=== PATIENT | female | born 1975 | race African-American/Black ===

== ENCOUNTER 2017-06-30 17:42 | Emergency (ER) | payer SELFPAY ==
[2017-06-30 17:44] VITALS: BP 183/110; PULSE 102; RESP 18; TEMP 36.6; O2SAT 99; BMI 34.3
[2017-06-30] MEDS: Ipratropium/Albuterol Sulfate 3 ML AMPUL.NEB INHALATION (19:09)
[2017-06-30 19:10] VITALS: PULSE 78; RESP 18
[2017-06-30] MEDS: Albuterol 2.5 MG/3 ML VIAL.NEB. INHALATION (19:10)
--- NOTE | 2017-06-30 19:30 | RAD_ITS ---
STUDY: X-RAY CHEST REASON FOR EXAM: Female, 41 years old. Cough TECHNIQUE: Frontal and lateral views of the chest were obtained. COMPARISON: None. FINDINGS: The lungs are adequately aerated. There are no focal airspace opacities. There is no demonstrated pleural abnormality. The cardiac silhouette is normal in size. The mediastinum and hilar regions are unremarkable. Normal visualized pulmonary arteries. Normal visualized aortic arch and descending thoracic aorta. The thoracic spine is unremarkable. The visualized ribs, clavicles, and shoulders are unremarkable. There is no demonstrated abnormality of the visualized upper abdomen. RAD/Chest PA and Lateral IMPRESSION: There is no evidence of focal consolidation or pleural effusion. Electronically Signed: Amy Byrnes MD at 19:49 EST Tel Direct: [phone], Service support ,
[2017-06-30 20:02] VITALS: BP 149/97; PULSE 84; RESP 18; O2SAT 100
--- NOTE | 2017-06-30 21:39 | ED.DCSUM_ITS ---
- ER Visit Summary Date of Service: 06/30/17 Chief Complaint: Trouble breathing and nonproductive cough History of Present Illness: The patient is a 41 F who is a non-smoker presents with nonproductive cough and trouble breathing. Symptoms started approximately 1 week ago and has gotten worse over the past 24 hours. Her children are ill with viral upper respiratory type symptoms. There illness began last week. She denies fever, chills night sweats. She denies headache, runny nose, earache or sore throat. She states when she coughs hard she has chest discomfort. She has no history of PE DVT. She has no complaint of leg pain, swelling discoloration. She has no risk factors for PE or DVT nor does she have a past history. Physical Examination: Initial blood pressure was 183/110. Repeat blood pressure is 149/90. Head is atraumatic normocephalic. Pupils are equal round reactive. Extraocular muscles are intact. TMs are pearly white with landmarks noted. Nares patent with no drainage. Posterior pharynx without erythema or exudate. Uvula is midline. There is no dysphonia or dysphasia. Trachea is midline. There is no stridor with auscultation of the neck. Heart is regular without murmur, gallop or rub. S1 and S2 are normal. Lungs are remarkable for bilateral wheezing to auscultation with good movement of air bilaterally. There is no asymmetry, swelling, discoloration, leg vein distention, palpable cords or tenderness along the distribution of the deep venous system. Neuro exam is nonfocal Test Results: Two-view chest x-ray was obtained and interpreted by me as negative Emergency Department Course and Treatment: Because patient has a cough non- smoker wheezing chest x-ray was obtained and she was treated with DuoNeb and albuterol. Treatment Plan: Reevaluation at 2130 is remarkable for improved blood pressure and patient is now wheeze free. She no longer appears dyspneic. A prescription for albuterol was written and dispensed. Disposition: Discharged home in stable improved condition Impression: Acute asthmatic bronchitis This note was generated with [employer]ation software. It may contain incorrect words, spelling, and punctuation that were not noted in review of the chart prior to signing ED Disposition - Plan for ED Patient: Disposition: Home or Assisted Living Chief Complaint: Shortness of Breath Instructions: ED Bronchitis Asthmatic Referrals: Care Physician,No Primary [Primary Care Provider] -
--- NOTE | 2017-06-30 21:40 | ED.VISSUMM ---
- ER Visit Summary Date of Service: 06/30/17 Chief Complaint: [] History of Present Illness: The patient is a 41 F [] Physical Examination: [] Test Results: [] Emergency Department Course and Treatment: [] Treatment Plan: [] Disposition: [] Impression: [] This note was generated with [employer] dictation software. It may contain incorrect words, spelling, and punctuation that were not noted in review of the chart prior to signing ED Disposition - Plan for ED Patient: Disposition: Home or Assisted Living Chief Complaint: Shortness of Breath Instructions: ED Bronchitis Asthmatic Prescriptions: Albuterol Inhaler [Ventolin Hfa] 2 puff INHALATION Q4H PRN PRN #1 inhaler PRN Reason: Shortness of breath or wheezin Referrals: Care Physician,No Primary [Primary Care Provider] - 5-7 Days Additional Instructions: Follow-up with the doctor you were assigned to by your insurance carrier [employer] advantage.
[2017-06-30 22:00] VITALS: PULSE 89; RESP 16; O2SAT 95
[2017-06-30 22:31] VITALS: PULSE 82; RESP 16; O2SAT 100
--- NOTE | 2017-06-30 22:36 | NURSING ---
CALLED RESPIRATORY TO DO EDUCATION WITH HOME GOING INHALER
[2017-06-30 22:45] VITALS: RESP 18
== END 2017-06-30 22:45 | disposition home or self-care (01) ==
PROVIDERS: Emergency Provider Emergency Medicine
DX: J45.909 Unspecified asthma, uncomplicated (principal)
CPT/HCPCS: 71046; 94640; 99283

== ENCOUNTER 2018-04-21 22:19 | Emergency (ER) | payer BC, SELFPAY ==
[2018-04-21 22:21] VITALS: BP 157/96; PULSE 113; RESP 26; TEMP 36.6; O2SAT 96; BMI 37.0
--- NOTE | 2018-04-21 22:35 | ED.DCSUM_ITS ---
- ER Visit Summary Date of Service: 04/21/18 Chief Complaint: [] Shortness of breath with wheezing History of Present Illness: The patient is a 42 F planing of shortness of breath with wheezing. This is been going on for the last couple days. No home treatment. She has a nebulizer but is out of liquid. She does not have a formal diagnosis of asthma but for the last year she is been having frequent exacerbations. She has a mild dry cough. This came on gradually. Her symptoms tonight are continuous. She has wheezing. Current severity is moderate. Worsened by nothing. Relieved by albuterol inhaler for which she is been using intermittently. She denies any chest pain. Her last steroids were 2 weeks ago. She denies any recent hospitalizations. She is never been on an inhaled steroid Physical Examination: [] Vital signs reviewed General: Well-nourished well-developed Head: Normocephalic atraumatic Eyes: Pupils equal round and reactive to light extraocular movements intact ENT: TMs clear no hemotympanum no trauma Neck: Nontender full range of motion Cardiovascular: Regular rate rhythm no murmurs normal S1-S2 Respiratory: No distress Tory wheezes throughout all lung [place]. Chest nontender Abdomen: Soft nontender nondistended normal bowel sounds no masses Back: Nontender no CVA tenderness Extremities: Nontender active range of motion ?4 extremities no trauma Skin: Normal color no trauma Neuro alert oriented cranial nerves II through XII intact normal strength sensation reflexes Test Results: [] Emergency Department Course and Treatment: [] At this time I feel the patient has asthma. She has had frequent exacerbations throughout the year. I do not think she needs a chest x-ray. Given prednisone and DuoNeb nebulizer followed by 2 albuterol breathing treatments. [place] much better after treatment. She will be discharged with albuterol liquid and will continue her inhaler as well as a prednisone burst for 5 days. She will also be given a prescription for Advair if she has an uncontrolled asthmatic. Instructed to follow-up with the family doctor and given a referral Treatment Plan: [] Disposition: [] Impression: [] Acute asthma exacerbation This note was generated with [employer] software. It may contain incorrect words, spelling, and punctuation that were not noted in review of the chart prior to signing ED Disposition - Plan for ED Patient: Chief Complaint: Shortness of Breath Referrals: Care Physician,Shalini Primary [Primary Care Provider] -
[2018-04-21 22:38] VITALS: BP 157/96; PULSE 111; PULSE 113; RESP 24; RESP 26; TEMP 36.6; O2SAT 96; O2SAT 98
--- NOTE | 2018-04-21 22:45 | ED.DEP ---
ED Disposition - Plan for ED Patient: Disposition: Home or Assisted Living Chief Complaint: Shortness of Breath Instructions: ED Reactive Airway Disease Prescriptions: Albuterol Aerosols [Ventolin Aerosols] 2.5 mg INHALATION Q4H PRN #25 vial predniSONE tablet 60 mg PO DAILY #15 tab Referrals: Care Physician,No Primary [Primary Care Provider] - Jean Mckay MD [STAFF PHYSICIAN] -
[2018-04-21 22:47] VITALS: PULSE 104; RESP 18
[2018-04-21] MEDS: Ipratropium/Albuterol Sulfate 3 ML AMPUL.NEB INHALATION (22:47)
[2018-04-21] MEDS: Albuterol 2.5 MG/3 ML VIAL.NEB. INHALATION ×2 (22:47→23:00)
[2018-04-21 23:00] VITALS: PULSE 114; RESP 24
[2018-04-21] MEDS: predniSONE 20 MG Tablet 60 MG PO (23:17)
[2018-04-21 23:20] VITALS: BP 150/100; PULSE 96; RESP 18; O2SAT 96
== END 2018-04-21 23:20 | disposition home or self-care (01) ==
LOC: ED 23:02
PROVIDERS: Emergency Provider Emergency Medicine
DX: J45.901 Unspecified asthma with (acute) exacerbation (principal)
CPT/HCPCS: 94640; 99284

== ENCOUNTER 2018-07-11 01:07 | Emergency (ER) | payer BC, SELFPAY ==
[2018-07-11 01:08] VITALS: BP 141/90; PULSE 109; RESP 18; TEMP 36.6; O2SAT 100; BMI 36.6
--- NOTE | 2018-07-11 01:19 | RAD_ITS ---
STUDY: X-RAY CHEST REASON FOR EXAM: Female, 42 years old. Cough. TECHNIQUE: PA and lateral chest. COMPARISON: June 30, 2017. FINDINGS: The lungs are clear and expanded. There is no demonstrated pleural abnormality. Normal size heart. Normal mediastinum and francisco. Normal visualized pulmonary arteries. Normal visualized aortic arch and descending thoracic aorta. Normal visualized thoracic spine. Normal visualized ribs, clavicles, and shoulders. There is no demonstrated abnormality of the visualized soft tissue structures of the upper abdomen. RAD/Chest PA and Lateral IMPRESSION: Normal x-ray examination of the chest. Electronically Signed: Raffaele Stephen MD at 2:30 EDT , Service support ,
--- NOTE | 2018-07-11 01:21 | ED.VISSUMM ---
- ER Visit Summary Date of Service: 07/11/18 Chief Complaint: Short of breath and chest tightness History of Present Illness: The patient is a 42 F who presents with cough and shortness of breath. She has had about 1 week of a URI-like illness with congestion rhinorrhea although the symptoms are improving. She was seen at an urgent care and prescribed a Medrol Dosepak as well as Levaquin. She states today she is having increased shortness of breath and chest tightness. No chest pain. No fevers. No vomiting. Physical Examination: Heart rate 109 blood pressure 141/90 afebrile pulse ox 100% respiratory rate 18 No distress Moist mucous membranes Heart regular slightly tachycardic Patient has scattered expiratory wheezing but is in no distress no increased work of breathing or tachypnea speaking in full sentences Alert Test Results: Two-view chest x-ray my review shows no acute process Emergency Department Course and Treatment: Patient was treated with a DuoNeb aerosol here. On reevaluation she is resting comfortably. Her lungs are clear. She was advised on supportive care and to continue her current medications. She was given a prescription for new albuterol inhaler. She was advised to follow-up as an outpatient. She understands to return for new or worsening symptoms and was discharged home. Treatment Plan: [] Disposition: Discharge Impression: Asthmatic bronchitis This note was generated with [employer] dictation software. It may contain incorrect words, spelling, and punctuation that were not noted in review of the chart prior to signing ED Disposition - Plan for ED Patient: Referrals: Care Physician,No Primary [NON-STAFF] -
[2018-07-11 01:25] VITALS: PULSE 90; RESP 18
[2018-07-11] MEDS: Ipratropium/Albuterol Sulfate 3 ML AMPUL.NEB INHALATION (01:30)
[2018-07-11 01:58] VITALS: BP 129/90; PULSE 96; RESP 20; O2SAT 99
--- NOTE | 2018-07-11 01:59 | ED.DEP ---
ED Disposition - Plan for ED Patient: Instructions: ED Bronchitis Asthmatic Prescriptions: Albuterol Inhaler [Ventolin Hfa] 1 - 2 puff INHALATION Q4H PRN PRN #1 inhaler PRN Reason: Wheezing Referrals: Care Physician,No Primary [NON-STAFF] - Jean Mckay MD [Primary Care Provider] -
== END 2018-07-11 01:59 | disposition home or self-care (01) ==
LOC: ED 01:27
PROVIDERS: Emergency Provider Emergency Medicine; Family Provider Family Medicine; PCP Family Medicine
DX: J45.909 Unspecified asthma, uncomplicated (principal)
CPT/HCPCS: 71046; 94640; 99282

== ENCOUNTER 2018-08-11 20:46 | Emergency (ER) | payer BC, SELFPAY ==
[2018-08-11 20:46] VITALS: BP 155/104; PULSE 108; RESP 22; TEMP 36.7; O2SAT 100; BMI 36.1
[2018-08-11 21:05] VITALS: O2SAT 97
--- NOTE | 2018-08-11 21:19 | ED.VISSUMM ---
- ER Visit Summary Date of Service: 08/11/18 Chief Complaint: Shortness of breath History of Present Illness: The patient is a 42 F who presents with shortness of breath that has been getting worse over the past couple days. Patient states she has some tightness in her chest. Patient states she is having a cough with some yellow and clear sputum. Patient denies any fevers or chills. Patient denies any ear pain or sore throat. Patient states she has a history of asthma. Patient states she did take an albuterol aerosol at home today which helped. Patient states her breathing is worse with exertion. Physical Examination: Vital signs are stable. Patient is afebrile. Patient is in no acute distress. Oral mucosa is pink and moist. Neck is supple. Trachea is midline. There is no JVD noted. Heart was regular rate and rhythm. Lungs showed diffuse expiratory wheezing. There is good respiratory effort. There is no retractions noted. Abdomen is soft and nontender. Cranial nerves II through XII are intact. There are no focal motor or sensory deficits noted. Emergency Department Course and Treatment: Patient was given a DuoNeb aerosol here. Patient felt better on reevaluation. Patient was given a prescription for albuterol inhaler. Patient was instructed to follow-up with her primary care physician in 5-7 days. Patient also requests a referral for a criminal judge. Patient was given contact information for Dr. Durham. Patient understood and was agreeable with the plan. All questions were answered. Disposition: Discharge home Impression: Asthma exacerbation This note was generated with [employer] dictation software. It may contain incorrect words, spelling, and punctuation that were not noted in review of the chart prior to signing ED Disposition - Plan for ED Patient: Disposition: ID Hospital Diagnosis: Asthma exacerbation Instructions: ED Reactive Airway Disease Prescriptions: Albuterol Inhaler [Ventolin Hfa] 1 - 2 puff INHALATION Q4H PRN PRN #1 inhaler PRN Reason: Wheezing Referrals: Jean Mckay MD [Primary Care Provider] - 5-7 Days Teto Durham MD [STAFF PHYSICIAN] -
[2018-08-11 21:27] VITALS: PULSE 94; RESP 20
[2018-08-11] MEDS: Ipratropium/Albuterol Sulfate 3 ML AMPUL.NEB INHALATION (21:27)
--- NOTE | 2018-08-11 22:11 | ED.DCSUM_ITS ---
- ER Visit Summary Date of Service: 08/11/18 Chief Complaint: Shortness of breath History of Present Illness: The patient is a 42 F who presents with shortness of breath that has been getting worse over the past couple days. Patient states she has some tightness in her chest. Patient states she is having a cough with some yellow and clear sputum. Patient denies any fevers or chills. Patient denies any ear pain or sore throat. Patient states she has a history of asthma. Patient states she did take an albuterol aerosol at home today which helped. Patient states her breathing is worse with exertion. Physical Examination: Vital signs are stable. Patient is afebrile. Patient is in no acute distress. Oral mucosa is pink and moist. Neck is supple. Trachea is midline. There is no JVD noted. Heart was regular rate and rhythm. Lungs showed diffuse expiratory wheezing. There is good respiratory effort. There is no retractions noted. Abdomen is soft and nontender. Cranial nerves II through XII are intact. There are no focal motor or sensory deficits noted. Emergency Department Course and Treatment: Patient was given a DuoNeb aerosol here. Patient felt better on reevaluation. Patient was given a prescription for albuterol inhaler. Patient was instructed to follow-up with her primary care physician in 5-7 days. Patient also requests a referral for a community development coordinator. Patient was given contact information for Dr. Durham. Patient understood and was agreeable with the plan. All questions were answered. Disposition: Discharge home Impression: Asthma exacerbation This note was generated with [employer] dictation software. It may contain incorrect words, spelling, and punctuation that were not noted in review of the chart prior to signing ED Disposition - Plan for ED Patient: Disposition: [place] Hospital Diagnosis: Asthma exacerbation Instructions: ED Reactive Airway Disease Prescriptions: Albuterol Inhaler [Ventolin Hfa] 1 - 2 puff INHALATION Q4H PRN PRN #1 inhaler PRN Reason: Wheezing Referrals: Jean Mckay MD [Primary Care Provider] - 5-7 Days Teto Durham MD [STAFF PHYSICIAN] -
[2018-08-11 22:25] VITALS: BP 140/86; PULSE 90; RESP 20; O2SAT 95
== END 2018-08-11 22:25 | disposition home or self-care (01) ==
PROVIDERS: Emergency Provider Emergency Medicine; Family Provider Family Medicine; PCP Family Medicine
DX: J45.901 Unspecified asthma with (acute) exacerbation (principal)
CPT/HCPCS: 94640; 99282

== ENCOUNTER → 2018-10-15 09:38 | Outpatient (CLI) | payer BC, SELFPAY ==
[2018-10-15 08:52] VITALS: BMI 36.3
[2018-10-15 10:18] LABS: Absolute Lymphocyte Count 2.02 X10^3/ul (0.83-4.51); Absolute Neutrophil Count 4.7 X10^3/uL (2.0-7.7); Basophil# 0.05 X10^3/uL; Basophil% 0.7 % (0-1); Eosinophil# 0.24 X10^3/uL; Eosinophils% 3.1 % (0-5); Hematocrit 41.8 % (37-47); Hemoglobin 14.5 g/dl (12.0-15.0); Lymphocyte # 2.02 X10^3/ul (4.0); Lymphocyte % 26.4 % (19-41); Mean Corp Hgb Conc 34.7 g/gl (32-36); Mean Corpuscular Hgb 27.2 pg (27.0-32.0); Mean Corpuscular Volume 78.3 fL (81-99); Mean Platelet Vol. 10.5 fl (6.2-12.0); Monocyte# 0.61 X10^3/uL; Neutrophil # 4.71 X10^3/uL (2.7-7.7); Neutrophil % 61.5 % (47-70); POSITIVE COUNT NO; POSITIVE DIFFERENTIAL NO; POSITIVE MORPHOLOGY NO; Platelet Count 252 K/mm3 (150-450); RBC Distribution Width SD 39.4 fl (35.1-43.9); Red Blood Count 5.34 M/mm3 (4.2-5.4); White Blood Count 7.7 K/mm3 (4.4-11.0)
[2018-10-19 03:07] LABS: Alternaria tenuis <0.10 kU/L (Class 0); Ash, White <0.10 kU/L (Class 0); Aspergillus fumigatus <0.10 kU/L (Class 0); Aspirgillus flavus Negative (Neg:<1:1); Aspirgillus fumigatus Negative (Neg:<1:1); Aspirgillus niger Negative (Neg:<1:1); Bermuda Grass <0.10 kU/L (Class 0); Birch <0.10 kU/L (Class 0); Black Walnut <0.10 kU/L (Class 0); Cat Hair / Dander,Stand <0.10 kU/L (Class 0); Cedar, Mountain <0.10 kU/L (Class 0); Cladosporium herbarum <0.10 kU/L (Class 0); Cockroach, American <0.10 kU/L (Class 0); Cottonwood <0.10 kU/L (Class 0); D farinae Mite <0.10 kU/L (Class 0); D pteronyssinus <0.10 kU/L (Class 0); Dog Epithelia 5.13 kU/L (Class IV); Elm, American White <0.10 kU/L (Class 0); Immunoglobulin E 105 IU/mL (6-495); Maple/Box Elder <0.10 kU/L (Class 0); Mulberry, White <0.10 kU/L (Class 0); Oak, White <0.10 kU/L (Class 0); Pecan 0.55 kU/L (Class I); Penicillium Notatum <0.10 kU/L (Class 0); Pigweed, Rough <0.10 kU/L (Class 0); Ragweed, Short/Common <0.10 kU/L (Class 0); Russian Thistle <0.10 kU/L (Class 0); Sheep Sorrel <0.10 kU/L (Class 0); Sycamore, American <0.10 kU/L (Class 0); Timothy Grass <0.10 kU/L (Class 0)
[2018-10-19 11:17] LABS: Immunoglobulin E 111 IU/mL (6-495); Mouse Urine <0.10 kU/L (Class 0)
== END ==
LOC: PAVLAB 09:40
PROVIDERS: Family Provider Family Medicine; PCP Family Medicine; Referring Provider Internal Medicine Critical Care Medicine; Visit Provider Internal Medicine Critical Care Medicine
DX: J45.909 Unspecified asthma, uncomplicated (principal)
CPT/HCPCS: 36415; 82785; 85025; 86003; 86606

== ENCOUNTER → 2018-11-01 08:13 | Outpatient (CLI) | payer BC, SELFPAY ==
[2018-10-15 08:52] VITALS: BMI 36.3
--- NOTE | 2018-11-01 14:39 | PFTCOMP ---
COMPLETE PULMONARY FUNCTION TEST INTERPRETATION Brief HPI: Patient is a 42 year old -[place] female, currently under the care of Dr. Mora, who presents to [facility] for complete pulmonary function tests secondary to diagnosis of asthma. Respiratory therapist reports good effort and reproducible results. Interpretation: Forced expiration spirometry shows no large airways obstructive ventilatory defect with an FEV1 of 91% predicted. There is no significant bronchodilator response by strict ATS criteria. Spirograms are of good quality and plateau slowly, indicating slowly emptying areas of the lungs. The respiratory flow volume loop shows a normal pattern. Lung volumes by body plethysmography show a slightly reduced total lung capacity at 4.29 L, 85% predicted. All other lung volumes are reduced symmetrically. Diffusion capacity by carbon monoxide is reduced at 68% predicted. The airway resistance is slightly elevated. No previous pulmonary function tests were available for review. Impression: Isolated reduction in diffusion capacity consistent with a possible pulmonary vascular disorder.
== END ==
LOC: PSN 08:14
PROVIDERS: Family Provider Family Medicine; PCP Family Medicine; Referring Provider Internal Medicine Critical Care Medicine; Visit Provider Internal Medicine Critical Care Medicine
DX: J45.909 Unspecified asthma, uncomplicated (principal)
CPT/HCPCS: 94060; 94726; 94729

== ENCOUNTER 2019-03-31 18:40 | Emergency (ER) | payer BC, SELFPAY ==
[2018-12-12 10:45] VITALS: BMI 36.3
[2019-03-31 18:41] VITALS: BP 163/105; PULSE 91; PULSE 97; RESP 18; RESP 22; TEMP 36.1; O2SAT 98; BMI 36.2
[2019-03-31 18:49] VITALS: O2SAT 97
--- NOTE | 2019-03-31 18:57 | ED.VIS.GEN ---
History of Present Illness Chief Complaint: Shortness of Breath Informant: Patient Onset: Today Narrative: Patient states for the past several hours she has had an asthma flare. She sees pulmonology here at the hospital for her asthma care. She states that she has not felt sick or had any viral infections. She reports her last flare of asthma was over October 25. She notes cough and dyspnea. Past Medical History - Allergies and Home Meds Allergies/Adverse Reactions: Allergies No Known Allergies Allergy (Verified 03/31/19 18:41) Primary Care Physician: Jean Mckay MD [Primary Care Provider] - As Needed Smoking Status: Never smoker Review of Systems General: Denies: Chills, Fever, Sweats Eyes: Denies: Visual changes - bilaterally, Diplopia ENT: Denies: Rhinorrhea, Sore throat Cardiovascular: Denies: Chest pain, Palpitations Respiratory: Reports: Dyspnea, Cough, Dyspnea on exertion Gastrointestinal: Denies: Abdominal pain, Nausea, Vomiting, Diarrhea, Melena, Hematochezia Genitourinary: Denies: Dysuria, Hematuria, Frequency Musculoskeletal: Denies: Back pain, Extremity Pain Skin: Denies: Rash, Wounds Neurological: Denies: Headache, Weakness, Numbness Physical Exam Vital Signs/Narrative: Vital Signs Temp Pulse Resp BP Pulse Ox 03/31/19 18:41 97.0 F L 97 22 H 163/105 H 98 General: Well nourished, Well developed, No Acute Distress Head: Normocephalic, Atraumatic Eyes: Perrl, EOMI ENT: Moist mucous membranes, No rhinorrhea Neck: Supple, Nontender Cardiovascular: Regular rate, Regular rhythm, No murmurs Respiratory: No distress, Chest nontender, Wheezing - Inspiratory and expiratory wheezing, Decreased Air Movement Abdomen: Soft, Nontender, Nondistended, Normal bowel sounds Back: Nontender, Normal Inspection Extremities: Nontender, No edema Skin: Normal color, No rash Neurological: Alert, Oriented x3, Cranial nerves II-XII grossly intact, Normal Strength, Normal Sensation Psychological: Normal affect, Normal Mood Diagnostic/Tx/Re-eval - Medical Decision Making Patient received breathing treatments and prednisone. Lung sounds are improved and symptomatically she states she feels better. She will be discharged home with a prescription for prednisone and instructions to have scheduled use of her albuterol MDI. Return if worsening or concerns ED Disposition - Plan for ED Patient: Disposition: Home or Assisted Living Diagnosis: Asthma, Asthma exacerbation Instructions: ASTHMA, Acute (Adult) Prescriptions: Prednisone [Deltasone] 40 mg PO DAILY #10 tab Prescription Printed Referrals: Jean Mckay MD [Primary Care Provider] - As Needed Additional Instructions: I would recommend using your inhaler very regularly - at least 2 puffs every 4 hours
[2019-03-31 19:12] VITALS: PULSE 84; RESP 20; RESP 22; O2SAT 98
[2019-03-31] MEDS: Ipratropium/Albuterol Sulfate 3 ML AMPUL.NEB INHALATION (19:12)
[2019-03-31] MEDS: Albuterol 2.5 MG/3 ML VIAL.NEB. INHALATION ×3 (19:12→19:35)
[2019-03-31] MEDS: predniSONE 20 MG Tablet 40 MG PO (19:36)
[2019-03-31 19:59] VITALS: RESP 18
--- NOTE | 2019-03-31 20:04 | CPS ---
x3 Albuterol given to pt. in ED as well
== END 2019-03-31 20:01 | disposition home or self-care (01) ==
LOC: ED 19:04
PROVIDERS: Emergency Provider Emergency Medicine; Family Provider Family Medicine; PCP Family Medicine
DX: J45.901 Unspecified asthma with (acute) exacerbation (principal)
CPT/HCPCS: 94640; 99251; 99282; G0463

== ENCOUNTER → 2019-05-20 17:30 | Outpatient (CLI) | payer BC, SELFPAY ==
[2019-05-23 11:09] LABS: HPV Reflexed? NOT INDICATED
== END ==
PROVIDERS: PCP Family Medicine; Referring Provider Nurse Practitioner Family; Visit Provider Nurse Practitioner Family
DX: Z00.00 Encounter for general adult medical examination without abnormal findings (principal)
CPT/HCPCS: 88175; G0145

== ENCOUNTER → 2019-05-21 08:12 | Outpatient (CLI) | payer BC, SELFPAY ==
[2019-05-21 10:39] LABS: ALB/GLOB Ratio 0.8 RATIO (0.9-2.4); AST(SGOT) 18 U/L (15-37); Alanine Aminotransfer ALT/SGPT 43 U/L (13-56); Albumin, Serum 3.2 g/dL (3.2-5.0); Alkaline Phosphatase 81 U/L (45-117); Anion Gap 6 (5-15); BUN 10 mg/dL (7-18); BUN/Creat Ratio 10.9 RATIO (10-20); Calcium,Total 8.9 mg/dL (8.5-10.1); Chloride 109 mmol/L (98-107); Cholesterol 187 mg/dL (200); Creatinine, Serum 0.92 mg/dL (0.55-1.02); EST Glomerular Filtration Rate 71 mL/min (>60); Est Glom Filt Rate - Afr Amer 86 mL/min (>60); Globulin 4.1 g/dL (2.2-4.2); Glucose 86 mg/dL (74-106); High Density Lipoprotein 56 mg/dL; Potassium 3.8 mmol/L (3.5-5.1); Protein, Total 7.3 g/dL (6.4-8.2); Sodium Level 140 mmol/L (136-145); Triglycerides 115 mg/dL; Very Low Density Lipoprotein 23 mg/dL (5-40)
== END ==
LOC: MFPLAB 08:13
PROVIDERS: PCP Family Medicine; Referring Provider Family Medicine; Visit Provider Nurse Practitioner Family
DX: E66.9 Obesity, unspecified (principal)
CPT/HCPCS: 36415; 80053; 80061

== ENCOUNTER → 2019-05-24 08:01 | Outpatient (CLI) | payer BC, SELFPAY ==
--- NOTE | 2019-05-24 08:14 | BI_ITS ---
MAMMOGRAPHY - BILATERAL SCREENING REASON FOR EXAM: Female, 43 years old. Routine annual screening examination. PERTINENT HISTORY: Aunts with breast cancer. TECHNIQUE: Digital bilateral breast juanita (3D mammographic acquisition) in the CC and MLO projections. 2-D mediolateral oblique (MLO) and craniocaudad (CC) views of both breasts were obtained. CAD: Full Field Digital Mammography with Computer Added Detection was performed. COMPARISON: Comparison is made with prior outside examination dated June 16, 2015. FINDINGS: Breast Composition: There are scattered areas of fibroglandular density. There are no dominant masses or suspicious calcifications. There is a 1.1 cm x 0.5 cm well-defined nodule in the axillary region of the right breast. Correlation with ultrasound is recommended. Stable benign-appearing bilateral axillary lymph nodes. No other significant abnormalities are identified. BI/SCREEN MAMM (CAD) W/JUANITA BILAT IMPRESSION: 1.1 cm x 0.5 summary well-defined nodule in the axillary region of the right breast. Correlation with ultrasound is recommended. ASSESSMENT CATEGORY: BIRADS Category 0: Incomplete. Need additional imaging evaluation. A letter regarding these results will be sent to the patient by the facility within 30 days. Approximately 10% of breast cancers are not detected by mammography. A normal mammogram should not delay biopsy of a clinically suspicious abnormality. [id number] Electronically Signed: Jean Carlos Gallegos, at 9:00 EST , Service support ,
== END ==
PROVIDERS: PCP Family Medicine; Referring Provider Nurse Practitioner Family; Visit Provider Nurse Practitioner Family
DX: Z12.31 Encounter for screening mammogram for malignant neoplasm of breast (principal)
CPT/HCPCS: 77063; 77067

== ENCOUNTER → 2019-05-29 10:53 | Outpatient (CLI) | payer BC, SELFPAY ==
--- NOTE | 2019-05-29 10:55 | US_ITS ---
STUDY: ULTRASOUND BREAST - RIGHT REASON FOR EXAM: Female, 43 years old. Abnormal screening mammogram. TECHNIQUE: Axial and longitudinal images of the RIGHT breast were performed with a high resolution ultrasound transducer. # OF IMAGES: 13 COMPARISON: Comparison is made with prior mammogram dated May 24, 2019. FINDINGS: RIGHT Breast: The mammographic abnormality corresponds to a 1 cm x 0.9 cm x 0.6 cm hypoechoic solid nodule with central area of increased echotexture suggestive of a small lymph node. This is at the lung o''clock position of the breast at 4 cm from the nipple. US/Breast Limited Unilateral IMPRESSION: The mammographic findings are suggestive of a 1 cm x 0.9 cm x 0.6 cm lymph node at the 11:00 position of the breast at 4 cm from the nipple. ASSESSMENT CATEGORY: BIRADS Category 2: Benign. A letter regarding these results will be sent to the patient by the facility within 30 days. Electronically Signed: Jean Carlos Gallegos, at 11:20 EST , Service support ,
== END ==
PROVIDERS: PCP Family Medicine; Referring Provider Nurse Practitioner Family; Visit Provider Nurse Practitioner Family
DX: N63.10 Unspecified lump in the right breast, unspecified quadrant (principal)
CPT/HCPCS: 76642

== ENCOUNTER 2019-06-18 21:09 | Emergency (ER) | payer BC, SELFPAY ==
[2019-05-29 12:24] VITALS: BMI 36.6
[2019-06-18 21:10] VITALS: BP 162/107; PULSE 118; RESP 20; TEMP 37.7; O2SAT 100; BMI 36.2
[2019-06-18 21:15] VITALS: BP 162/107; PULSE 118; RESP 20; TEMP 37.7; O2SAT 100
--- NOTE | 2019-06-18 21:29 | ED.DCSUM_ITS ---
History of Present Illness Chief Complaint: Cold Sx Informant: Patient Onset: Yesterday Current Severity: Moderate Maximum Severity: Moderate Narrative: Patient presents with cough, congestion, red eyes, fever that started yesterday. She is a history of asthma does feel that she is wheezing. She states she had the same symptoms just before Garza's Day. They completely resolved and then she got ill again yesterday. - Past Medical History (1) Asthma Status: Chronic Past Medical History - Allergies and Home Meds Allergies/Adverse Reactions: Allergies No Known Allergies Allergy (Verified 06/18/19 21:12) Primary Care Physician: Jean Mckay MD [Primary Care Provider] - 5-7 Days Doctors: Dr. Mora Prior records reviewed: Yes Smoking Status: Never smoker Review of Systems General: Reports: Fever Eyes: Reports: - - Redness of bilateral eyes. No drainage.. Denies: Visual changes - bilaterally ENT: Reports: - - Congestion Cardiovascular: Reports: Chest pain - Lungs feel tight Respiratory: Reports: Dyspnea, Cough, - - Wheezing Gastrointestinal: Denies: Abdominal pain, Nausea, Vomiting, Diarrhea Musculoskeletal: Reports: Myalgias Neurological: Denies: Headache Hematologic: Denies: Easy bruising, Easy bleeding Allergy: Denies: Uticaria Physical Exam Vital Signs/Narrative: Vital Signs Temp Pulse Resp BP Pulse Ox 06/18/19 21:15 99.8 F H 118 H 20 H 162/107 H 100 06/18/19 21:10 99.8 F H 118 H 20 H 162/107 H 100 Inital Vital Signs reviewed: Yes General: Well nourished, Well developed Head: Normocephalic Eyes: EOMI, - - Conjunctival injection. No drainage. No eyelid edema. ENT: Moist mucous membranes Neck: Supple Cardiovascular: Tachycardia Respiratory: Decreased Air Movement Abdomen: Soft, Nontender Extremities: Nontender Skin: Normal color, No rash Neurological: Alert, Oriented x3 Psychological: Normal affect Diagnostic/Tx/Re-eval Impressions Chest X-Ray 06/18/19 21:30 IMPRESSION: Normal x-ray examination of the chest. Electronically Signed: Isaak Barkley MD at 21:45 EST , Service support , 02/25/20 21:30 Chest 1 View (Portable) [RAD] Stat 06/18/19 21:45 Mucosa - Nasopharyngeal Influenza Types A,B Direct FA (MAMTA) - Final Laboratory Results 06/18/19 06/18/19 21:50 21:50 WBC 7.1 RBC 4.97 Hgb 13.3 Hct 38.8 MCV 78.1 L MCH 26.8 L MCHC 34.3 RDW Std Deviation 38.5 RDW Coeff of Alem 13.6 Plt Count 239 MPV 11.2 Immature Gran % (Auto) 0.600 Neut % (Auto) 79.5 H Lymph % (Auto) 4.7 L Edgar % (Auto) 11.0 H Eos % (Auto) 3.8 Baso % (Auto) 0.4 Absolute Neuts (auto) 5.6 Absolute Lymphs (auto) 0.33 L Nucleated RBC % 0 Differential Comment SEE COMMENT Platelet Estimate ADEQUATE RBC Morphology N CHROM Anisocytosis RARE Microcytosis RARE Sodium 138 Potassium 3.5 Chloride 107 Carbon Dioxide 25.0 Anion Gap 6 BUN 10 Creatinine 0.98 Estim Creat Clear Calc 64.58 Est GFR (MDRD) Af Amer 80 Est GFR (MDRD) Non-Af 66 BUN/Creatinine Ratio 10.2 Glucose 98 Calcium 8.7 - Medical Decision Making Patient is given DuoNeb plus albuterol treatments, Solu-Medrol, Tylenol, and fluids. On repeat evaluation she does feel somewhat improved. Heart rate is around 115. Influenza swab is positive for flu A. She believes that this round of symptoms started yesterday and she will be treated with Tamiflu, first dose given here. Patient does have bilateral conjunctivitis. I would this is all viral in nature. She denies that her eyes are irritated or have had drainage. She is written off work until fever resolved for a full 24 hours. ED Disposition - Plan for ED Patient: Disposition: Home or Assisted Living Diagnosis: Influenza Instructions: INFLUENZA (Adult) Prescriptions: Oseltamivir Phosphate [Tamiflu] 75 mg PO BID #10 cap Transmission Status: Pending to [facility]/pharmacy #[id number] Referrals: Jean Mckay MD [Primary Care Provider] - 5-7 Days
--- NOTE | 2019-06-18 21:30 | RAD_ITS ---
STUDY: X-RAY CHEST REASON FOR EXAM: Female, 43 years old. SOB. PT HAS HISTORY OF ASTHMA TECHNIQUE: Single AP portable view of the chest. COMPARISON: Prior study of 07/11/2018 FINDINGS: The lungs are clear and expanded. There is no demonstrated pleural abnormality. Normal size heart. Normal mediastinum and francisco. Normal visualized pulmonary arteries. Normal visualized aortic arch and descending thoracic aorta. Normal visualized thoracic spine. Normal visualized ribs, clavicles, and shoulders. There is no demonstrated abnormality of the visualized soft tissue structures of the upper abdomen. RAD/Chest 1 View (Portable) IMPRESSION: Normal x-ray examination of the chest. Electronically Signed: Isaak Barkley MD at 21:45 EST , Service support ,
[2019-06-18] MEDS: Ipratropium/Albuterol Sulfate 3 ML AMPUL.NEB INHALATION (21:39)
[2019-06-18] MEDS: Albuterol 2.5 MG/3 ML VIAL.NEB. INHALATION ×2 (21:39)
[2019-06-18] MEDS: Acetaminophen 500 MG Tablet 1000 MG PO (21:45)
[2019-06-18] MEDS: 0.9% Normal Saline 1,000 ML 150 ML IV (21:45)
[2019-06-18] MEDS: MethylPREDNISolone 125 MG/2 ML Vial IV (21:46)
[2019-06-18 21:51] VITALS: PULSE 128; RESP 22
[2019-06-18 21:57] LABS: Absolute Lymphocyte Count 0.33 X10^3/uL (0.83-4.51); Absolute Neutrophil Count 5.6 X10^3/uL (2.0-7.7); Basophil# 0.03 X10^3/uL; Basophil% 0.4 % (0-1); Eosinophil# 0.27 X10^3/uL; Eosinophils% 3.8 % (0-5); Hematocrit 38.8 % (37-47); Hemoglobin 13.3 g/dL (12.0-15.0); Lymphocyte # 0.33 X10^3/ul (4.0); Lymphocyte % 4.7 % (19-41); Mean Corp Hgb Conc 34.3 g/dL (32-36); Mean Corpuscular Hgb 26.8 pg (27.0-32.0); Mean Corpuscular Volume 78.1 fL (81-99); Mean Platelet Vol. 11.2 fl (6.2-12.0); Monocyte# 0.78 X10^3/uL; NRBC Flagged by Analyzer 0 % (0-5); Neutrophil # 5.61 X10^3/uL (2.7-7.7); Neutrophil % 79.5 % (47-70); POSITIVE DIFFERENTIAL YES; Platelet Count 239 K/mm3 (150-450); RBC Distribution Width CV 13.6 % (11.6-14.6); RBC Distribution Width SD 38.5 fl (35.1-43.9); Red Blood Count 4.97 M/mm3 (4.2-5.4); White Blood Count 7.1 K/mm3 (4.4-11.0)
[2019-06-18 22:00] LABS: Differential Indicated SCAN CRITERIA MET
[2019-06-18 22:14] LABS: Anion Gap 6 (5-15); BUN 10 mg/dL (7-18); BUN/Creat Ratio 10.2 RATIO (10-20); Calcium,Total 8.7 mg/dL (8.5-10.1); Chloride 107 mmol/L (98-107); Creatinine, Serum 0.98 mg/dL (0.55-1.02); EST Glomerular Filtration Rate 66 mL/min (>60); Est Glom Filt Rate - Afr Amer 80 mL/min (>60); Estimated Creatinine Clearance 64.58 ml/min; Glucose 98 mg/dL (74-106); Potassium 3.5 mmol/L (3.5-5.1); Sodium Level 138 mmol/L (136-145)
[2019-06-18 22:18] LABS: Platelet Estimate ADEQUATE (ADEQ)
[2019-06-18 22:19] LABS: Anisocytosis RARE; Microcytosis RARE; Red Cell Morphology N CHROM NORMAL (NORM C&C)
[2019-06-18 22:27] VITALS: BP 164/95; PULSE 124; RESP 19; TEMP 38.2; O2SAT 97
--- NOTE | 2019-06-18 22:39 | ED.RN ---
PER DR. NOEL, SEPSIS SCREEN COMPLETE. PT WITH INFLUENZA A.
[2019-06-18] MEDS: Oseltamivir Phosphate 75 MG Capsule PO (23:16)
[2019-06-18 23:17] VITALS: BP 142/74; PULSE 120; RESP 18; O2SAT 97
== END 2019-06-18 23:18 | disposition home or self-care (01) ==
PROVIDERS: Emergency Provider Emergency Medicine; PCP Family Medicine
DX: J45.909 Unspecified asthma, uncomplicated (principal)
CPT/HCPCS: 71045; 80048; 85025; 87804; 94640; 99285; J7030; A4216

== ENCOUNTER 2019-10-01 18:37 | Emergency (ER) | payer SELFPAY ==
[2019-10-01 18:38] VITALS: BP 147/98; PULSE 69; PULSE 70; RESP 16; TEMP 37.2; O2SAT 98; BMI 36.1
--- NOTE | 2019-10-01 19:00 | CT_ITS ---
STUDY: CT BRAIN WITHOUT CONTRAST REASON FOR EXAM: Female, 43 years old. Syncope. Hypertension. Tinnitus. RADIATION DOSAGE (If Supplied By Facility): CTDIvol = ( 44.99 ) mGy, DLP = ( 745.49 ) mGycm TECHNIQUE: Transaxial CT imaging of the brain was performed without administration of intravenous contrast material. Individualized dose optimization techniques were used for this CT. COMPARISON: None. FINDINGS: There is no acute bleed or infarct. There are normal white matter tracts. The ventricles are normal in configuration. There is no hydrocephalus. The visualized paranasal sinuses are clear. The mastoid air cells are well aerated. There is no skull fracture. CT/Brain/Head without Contrast IMPRESSION: No acute intracranial abnormality. Electronically Signed: Javad Farley, at 20:39 EDT Tel , Service support ,
--- NOTE | 2019-10-01 19:00 | EKG12_ITS ---
Test Reason : HYPERTENSION Blood Pressure : / mmHG Vent. Rate : 072 BPM Atrial Rate : 072 BPM P-R Int : 154 ms QRS Dur : 088 ms QT Int : 412 ms P-R-T Axes : 063 035 034 degrees QTc Int : 451 ms Normal sinus rhythm Normal ECG Confirmed by RADHAMES JUAREZ ([id number]), newspaper copy editor ALYSIA GILMAN ([id number]) on 10/03/2019 7:23:13 AM Referred By: DC Confirmed By:RADHAMES JUAREZ
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
--- NOTE | 2019-10-01 19:05 | ED.RN ---
NO OLD EKGS IN MUSE
[2019-10-01 19:15] VITALS: O2SAT 97
--- NOTE | 2019-10-01 19:23 | RAD_ITS ---
STUDY: X-RAY CHEST REASON FOR EXAM: Female, 43 years old. Syncope. TECHNIQUE: Frontal view of the chest COMPARISON: 06/18/2019 FINDINGS: The lungs are clear. There are no pleural effusions. There is no pneumothorax. The heart is normal in size. The visualized osseous structures are within normal limits. RAD/Chest 1 View (Portable) IMPRESSION: No acute thoracic pathology. Electronically Signed: Javad Farley, at 19:59 EDT Tel , Service support ,
[2019-10-01 19:25] LABS: Absolute Lymphocyte Count 2.77 X10^3/uL (0.83-4.51); Absolute Neutrophil Count 4.4 X10^3/uL (2.0-7.7); Basophil# 0.06 X10^3/uL; Basophil% 0.7 % (0-1); Hematocrit 38.7 % (37-47); Hemoglobin 13.1 g/dL (12.0-15.0); Lymphocyte # 2.77 X10^3/ul (4.0); Lymphocyte % 32.5 % (19-41); Mean Corp Hgb Conc 33.9 g/dL (32-36); Mean Corpuscular Hgb 27.1 pg (27.0-32.0); Mean Platelet Vol. 11.1 fl (6.2-12.0); Monocyte# 0.66 X10^3/uL; Monocyte% 7.7 % (0-10); NRBC Flagged by Analyzer 0 % (0-5); Neutrophil # 4.41 X10^3/uL (2.7-7.7); Neutrophil % 51.9 % (47-70); Platelet Count 277 K/mm3 (150-450); RBC Distribution Width CV 13.9 % (11.6-14.6); RBC Distribution Width SD 40.3 fl (35.1-43.9); Red Blood Count 4.84 M/mm3 (4.2-5.4); White Blood Count 8.5 K/mm3 (4.4-11.0)
[2019-10-01 19:43] LABS: Anion Gap 6 (5-15); BUN 12 mg/dL (7-18); BUN/Creat Ratio 15.5 RATIO (10-20); Calcium,Total 8.9 mg/dL (8.5-10.1); Chloride 109 mmol/L (98-107); Creatinine, Serum 0.77 mg/dL (0.55-1.02); EST Glomerular Filtration Rate 87 mL/min (>60); Est Glom Filt Rate - Afr Amer 105 mL/min (>60); Estimated Creatinine Clearance 82.19 ml/min; Glucose 86 mg/dL (74-106); Potassium 3.7 mmol/L (3.5-5.1); Sodium Level 141 mmol/L (136-145)
--- NOTE | 2019-10-01 21:14 | ED.DEP ---
ED Disposition - Plan for ED Patient: Instructions: ED HBP No Tx Referrals: Jean Mckay MD [Primary Care Provider] -
[2019-10-01 21:30] VITALS: BP 137/52; BP 137/95
[2019-10-01] MEDS: Acetaminophen 500 MG Tablet 1000 MG PO (21:33)
== END 2019-10-01 21:35 | disposition home or self-care (01) ==
LOC: ED 19:32
PROVIDERS: Emergency Provider Emergency Medicine; PCP Family Medicine
DX: I10 Essential (primary) hypertension (principal); Z82.49 Family history of ischemic heart disease and other diseases of the circulatory system; J45.909 Unspecified asthma, uncomplicated
CPT/HCPCS: 70450; 71045; 80048; 84484; 85025; 93005; 99285

== ENCOUNTER 2020-04-27 14:04 | Emergency (ER) | payer SELFPAY ==
[2019-11-28 07:35] VITALS: BMI 36.7
[2020-04-27 14:05] VITALS: BP 139/93; PULSE 66; RESP 16; TEMP 36.1; O2SAT 98; BMI 38.7
[2020-04-27 14:15] VITALS: BP 129/90; PULSE 69; RESP 17; O2SAT 100
--- NOTE | 2020-04-27 14:39 | EKG12_ITS ---
Test Reason : CP Blood Pressure : / mmHG Vent. Rate : 063 BPM Atrial Rate : 063 BPM P-R Int : 154 ms QRS Dur : 086 ms QT Int : 416 ms P-R-T Axes : 064 030 022 degrees QTc Int : 425 ms Normal sinus rhythm with sinus arrhythmia Normal ECG Confirmed by SHANNAN MARIN, LISETH ([id number]), newspaper copy editor ALYSIA GILMAN ([id number]) on 04/29/2020 9:41:16 AM Referred By: SERGEY Confirmed By:LISETH CAMPBELL MD
--- NOTE | 2020-04-27 14:41 | ED.DCSUM_ITS ---
- ER Visit Summary Date of Service: 04/27/20 Chief Complaint: Multiple complaints History of Present Illness: The patient is a 44 F presenting with multiple complaints. Patient states she has had ringing in her ears for the past 1 month. She states over the past 2 days she has had intermittent episodes of tingling in her feet, hot flashes, dizziness. She states she had sharp chest pain that lasts seconds at a time. She has had no chest pain today. She has mild shortness of breath associated with these symptoms. States she had a pain in her left eye that also lasted seconds at a time. She has no current chest pain or eye pain. Denies vision changes. She denies syncope. Denies fever or cough. Denies known exposure to Covid. Physical Examination: Vitals are stable. Patient is afebrile. Alert no acute distress. HEENT exam is unremarkable. TMs normal bilaterally Neck is supple. Lungs are clear and equal bilaterally. Heart is regular rate and rhythm. Abdomen is soft nontender nondistended. Extremities are unremarkable. Skin is warm and dry. No focal neurologic deficit. Normal strength and sensation Remainder of exam is unremarkable. Emergency Department Course and Treatment: EKG is sinus rhythm rate of 63 with no acute ischemic changes. CBC, chemistries unremarkable. Troponin is negative. Orthostatics negative. Chest x-ray shows no acute process. On reevaluation, patient is resting comfortably. She is advised to follow-up with her primary care physician. Advised return to ED for worsening complaints. Disposition: Discharge home Impression: Dizziness, resolved This note was generated with [employer] dictation software. It may contain incorrect words, spelling, and punctuation that were not noted in review of the chart prior to signing ED Disposition - Plan for ED Patient: Instructions: ED Dizziness, Uncertain Cause Referrals: Jose Guadalupe Lozano MD [STAFF PHYSICIAN] - Jean Mckay MD [Primary Care Provider] - Linda Ang [NON-STAFF] -
[2020-04-27] MEDS: 0.9% Normal Saline 1,000 ML 1000 ML IV (14:50)
--- NOTE | 2020-04-27 15:05 | RAD_ITS ---
STUDY: X-RAY CHEST REASON FOR EXAM: Female, 44 years old. Dizziness, numbness in feet/hands, left eye pain, chest pain TECHNIQUE: Single AP portable view of the chest. COMPARISON: Comparison is made with prior study dated 10/01/2019. FINDINGS: EKG electrodes are seen. The lungs are clear and expanded. There is no demonstrated pleural abnormality. Normal size heart. Normal mediastinum and francisco. Normal visualized pulmonary arteries. Normal visualized aortic arch and descending thoracic aorta. There are mild degenerative changes of the visualized thoracic spine. Normal visualized ribs, clavicles, and shoulders. There is no demonstrated abnormality of the visualized soft tissue structures of the upper abdomen. RAD/Chest 1 View (Portable) IMPRESSION: No acute abnormality is seen. Electronically Signed: Jean Carlos Gallegos, at 15:30 EST , Service support ,
[2020-04-27 15:23] LABS: Absolute Lymphocyte Count 2.25 X10^3/uL (0.83-4.51); Absolute Neutrophil Count 3.4 X10^3/uL (2.0-7.7); Basophil# 0.05 X10^3/uL; Basophil% 0.7 % (0-1); Eosinophil# 0.52 X10^3/uL; Eosinophils% 7.7 % (0-5); Hematocrit 39.5 % (37-47); Hemoglobin 13.5 g/dL (12.0-15.0); Lymphocyte # 2.25 X10^3/ul (4.0); Lymphocyte % 33.2 % (19-41); Mean Corp Hgb Conc 34.2 g/dL (32-36); Mean Corpuscular Hgb 27.4 pg (27.0-32.0); Mean Corpuscular Volume 80.3 fL (81-99); Mean Platelet Vol. 10.8 fl (6.2-12.0); Monocyte# 0.54 X10^3/uL; NRBC Flagged by Analyzer 0 % (0-5); Neutrophil % 50.1 % (47-70); Platelet Count 230 K/mm3 (150-450); RBC Distribution Width CV 14.1 % (11.6-14.6); RBC Distribution Width SD 40.8 fl (35.1-43.9); Red Blood Count 4.92 M/mm3 (4.2-5.4); White Blood Count 6.8 K/mm3 (4.4-11.0)
[2020-04-27 15:32] LABS: Anion Gap 7 (5-15); BUN 10 mg/dL (7-18); BUN/Creat Ratio 12.6 RATIO (10-20); Calcium,Total 8.6 mg/dL (8.5-10.1); Chloride 106 mmol/L (98-107); Creatinine, Serum 0.79 mg/dL (0.55-1.02); EST Glomerular Filtration Rate 84 mL/min (>60); Est Glom Filt Rate - Afr Amer 102 mL/min (>60); Estimated Creatinine Clearance 79.29 ml/min; Glucose 83 mg/dL (74-106); Potassium 3.9 mmol/L (3.5-5.1); Sodium Level 140 mmol/L (136-145)
[2020-04-27 15:33] VITALS: BP 138/100; BP 141/98; BP 143/97; PULSE 66; PULSE 71; PULSE 77
--- NOTE | 2020-04-27 15:49 | ED.DEP ---
ED Disposition - Plan for ED Patient: Instructions: ED Dizziness, Uncertain Cause Referrals: Jean Mckay MD [Primary Care Provider] - Linda Ang [NON-STAFF] - Jose Guadalupe Lozano MD [STAFF PHYSICIAN] -
[2020-04-27 16:00] VITALS: BP 143/97; PULSE 77; RESP 16; O2SAT 100
== END 2020-04-27 16:06 | disposition home or self-care (01) ==
LOC: ED 15:24
PROVIDERS: Emergency Provider Emergency Medicine; PCP Family Medicine
DX: R42 Dizziness and giddiness (principal); R06.02 Shortness of breath; R07.9 Chest pain, unspecified; J45.909 Unspecified asthma, uncomplicated
CPT/HCPCS: 71045; 80048; 84484; 85025; 93005; 96360; 99284; J7030; A4216

== ENCOUNTER 2021-02-12 08:40 | Emergency (ER) | payer MEDICAID, SELFPAY ==
[2021-02-12 08:41] VITALS: BP 145/94; PULSE 72; RESP 16; TEMP 35.9; O2SAT 99; BMI 39.4
--- NOTE | 2021-02-12 08:46 | ED.VIS.LOWEX ---
HPI History of Present Illness Chief Complaint: Lower Extremity Injury Informant: patient Occured/Mechanism Comment: twisted while moving quickly at work Onset/Context/Timing Onset: Days (several days ago) Context: Sudden Onset Timing: Continuous Quality of Pain: Aching Location: medial right knee Current Severity: Moderate Maximum Severity: Moderate Worsened by: walking Relieved by: resting Associated Symptoms Associated Symptoms: Negative for Parasthesia, Weakness and Loss of Funtion Narrative Narrative: Patient states she twisted her right knee couple days ago. She states she was at work, and she works in shipping/receiving at [employer], she states she was not carrying anything or doing anything in particular, she just moves around quickly and as a result when doing this and turning/pivoting to go different direction, she twisted it. She has been able to walk on it but with pain. She had an ACL/meniscus surgery remotely, and had been doing fine until this happened. She denies any other injury. [facility] Medical History (Updated 02/12/21 @ 09:[address] Saleem Palam MD) Allergic rhinitis Asthma Home Medications fluticasone propionate 220 mcg/actuation HFA aerosol inhaler 2 puff INHALATION BID #12 g 06/25/20 [Rx Last Taken Unknown] montelukast 10 mg tablet 10 mg PO QPM #30 tab 06/25/20 [Rx Last Taken Unknown] albuterol sulfate 90 mcg/actuation aerosol inhaler 2 puff INHALATION Q4H PRN #1 device 01/28/21 [Rx Last Taken Unknown] naproxen 500 mg PO BID PRN #14 tab 02/12/21 [Rx Last Taken Unknown] Allergy/AdvReac Type Severity Reaction Status Date / Time No Known Allergies Allergy Verified 02/12/21 08:43 Family History Other Arthritis Breast cancer CVA (cerebral vascular accident) Diabetes Hypertension Seizures Surgical History No pertinent past surgical history Social History Smoking Status: Never smoker second hand exposure: Yes ROS ROS ED Constitutional Constitutional ED: Denies chills or fever(s) Musculoskeletal Musculoskeletal: Reports extremity pain; Denies neck pain Integumentary Denies Abrasions, rash or wounds Neurologic Neurologic: Denies paresthesias or weakness EXAM Physical Exam Const Vital Signs: 02/12/21 08:41 Temperature 96.7 F L Temperature Source Temporal Pulse Rate 72 Respiratory Rate 16 Blood Pressure 145/94 H Blood Pressure Mean 111 Pulse Ox 99 Oxygen Delivery Method Room Air Positive well nourished and well developed General Appearance ED: well developed and NAD Neck full ROM and supple Back/Spine normal ROM and normal to inspection Extremity normal to inspection and full ROM Extremity Narrative: Mild tenderness medial aspect of the right knee including at the joint line. No effusion. No specific bony tenderness except for as above. No boggy patella. Extensor mechanism intact. Full range of motion. All ligaments intact and stable with short endpoints. There is increased pain at the medial joint line with both varus and valgus stress. Negative Melania and posterior drawer signs. Neuro oriented x3, no focal motor deficits and no sensory deficits noted Sensorium / Orientation: alert Psych mental status grossly normal and thought process normal Skin no wounds Rashes: no rashes MDM MDM MDM Narrative Medical decision making narrative: My interpretation, 4 view x-ray series of the right knee shows no acute fractures. She does have narrowed medial joint compartment. I suspect it is chronic. No large effusion. She is given an Kosta wrap, Naprosyn, prescription for more, and referred to orthopedics for further evaluation if she has persistent pain longer than a week. Discharge Plan Triage Chief Complaint: Lower Extremity Injury ED Provider: Saleem Palma Dx/Rx/DC Orders Clinical Impression: Right knee sprain Instructions: ED Knee Sprain Prescriptions: New naproxen 500 MG tablet 500 mg PO BID PRN Qty: 14 RF: 0 No Action Flovent HFA 220 mcg/actuation HFA aerosol inhaler 2 puff INHALATION BID Qty: 12 RF: 11 montelukast [Singulair] 10 mg tablet 10 mg PO QPM Qty: 30 RF: 11 albuterol sulfate 90 mcg/actuation HFA aerosol inhaler 2 puff INHALATION Q4H PRN (Reason: shortness of breath or wheezing) Qty: 1 RF: 6 Primary Care Provider: Jean Mckay Referrals: Harshil Starr DO [STAFF PHYSICIAN] - 1 Week if not improving Jean Mckay MD [Primary Care Provider] - Disposition Disposition: Home, Self Care
--- NOTE | 2021-02-12 08:54 | ED.RN ---
asked pt. if she wanted visit to be workmans comp. states no she just twisted wrong, was not from doing her job.
--- NOTE | 2021-02-12 09:05 | RAD_ITS ---
STUDY: X-RAY - RIGHT KNEE REASON FOR EXAM: Female, 45 years old. injury TECHNIQUE: 4 view(s) of the knee. COMPARISON: None. FINDINGS: No acute fracture, dislocation or osseous destruction. Severe medial compartment arthrosis. Normal lateral compartment. Mild patellofemoral arthrosis. Small joint effusion. Mild swelling. RAD/Knee 4 or More Views IMPRESSION: Right knee acutely intact Degenerative changes, as above Soft tissue swelling with mild joint effusion Electronically Signed: Bryan Lundberg DO at 9:20 EDT Tel , Service support ,
[2021-02-12] MEDS: Naproxen 250 MG Tablet 500 MG PO (09:22)
[2021-02-12 09:27] VITALS: BP 138/64; PULSE 80; RESP 16; TEMP 36.9; O2SAT 97
== END 2021-02-12 09:28 | disposition home or self-care (01) ==
PROVIDERS: Emergency Provider Emergency Medicine; PCP Family Medicine
DX: S83.91XA Sprain of unspecified site of right knee, initial encounter (principal); J45.909 Unspecified asthma, uncomplicated; X50.1XXA Overexertion from prolonged static or awkward postures, initial encounter; Z79.899 Other long term (current) drug therapy
CPT/HCPCS: 73564; 99283

== ENCOUNTER → 2023-02-02 | Outpatient (CLI) | payer MEDICAID, SELFPAY ==
[2023-02-02 12:28] LABS: Absolute Lymphocyte Count 2.46 X10^3/uL (0.83-4.51); Absolute Neutrophil Count 4.7 X10^3/uL (2.0-7.7); Basophil# 0.05 X10^3/uL; Basophil% 0.6 % (0-1); Eosinophil# 0.36 X10^3/uL; Eosinophils% 4.4 % (0-5); Hematocrit 39.5 % (37-47); Lymphocyte # 2.46 X10^3/ul (0.83-4.51); Lymphocyte % 30.1 % (19-41); Mean Corp Hgb Conc 32.9 g/dL (32-36); Mean Corpuscular Hgb 27.1 pg (27.0-32.0); Mean Corpuscular Volume 82.5 fL (81-99); Mean Platelet Vol. 10.6 fl (6.2-12.0); Monocyte# 0.57 X10^3/uL; NRBC Flagged by Analyzer 0 % (0-5); Neutrophil # 4.69 X10^3/uL (2.7-7.7); Neutrophil % 57.5 % (47-70); Platelet Count 240 K/mm3 (150-450); RBC Distribution Width CV 13.9 % (11.6-14.6); RBC Distribution Width SD 41.4 fl (35.1-43.9); Red Blood Count 4.79 M/mm3 (4.2-5.4); White Blood Count 8.2 K/mm3 (4.4-11.0)
[2023-02-02 13:20] LABS: Anion Gap 4 (5-15); BUN 9 mg/dL (7-18); BUN/Creat Ratio 11.5 RATIO (10-20); Calcium,Total 8.7 mg/dL (8.5-10.1); Chloride 110 mmol/L (98-107); Cholesterol 174 mg/dL (200); Creatinine, Serum 0.78 mg/dL (0.55-1.02); EST Glomerular Filtration Rate 84 mL/min (>60); Est Glom Filt Rate - Afr Amer 102 mL/min (>60); Glucose 94 mg/dL (74-106); High Density Lipoprotein 49 mg/dL; Potassium 3.8 mmol/L (3.5-5.1); Sodium Level 139 mmol/L (136-145); Triglycerides 134 mg/dL; Very Low Density Lipoprotein 27 mg/dL (5-40)
== END | disposition home or self-care (01) ==
PROVIDERS: PCP Family Medicine; Referring Provider Family Medicine; Visit Provider Family Medicine
DX: Z01.818 Encounter for other preprocedural examination (principal)
CPT/HCPCS: 36415; 80048; 80061; 85025

== ENCOUNTER → 2023-02-06 | Outpatient (CLI) | payer MEDICAID, SELFPAY ==
--- NOTE | 2023-02-06 13:13 | CT_ITS ---
CT RIGHT LOWER EXTREMITY WITH 3-D IMAGING CLINICAL INDICATION: RT KNEE *ISAI PROTOCOL* TECHNIQUE: Axial CT images of the right lower extremity (including right hip, right knee, and right ankle was performed without IV contrast material. Coronal and sagittal reformats were provided. RADIATION DOSAGE (If Supplied By Facility): CTDIvol = ( 18.96 ) mGy, DLP = ( 1290.64 ) mGycm COMPARISON: FINDINGS: Bones: Normal right hip joint. There is tricompartment degenerative arthrosis of the right knee joint, most pronounced in the medial femorotibial compartment. There is a 9 mm ossified loose body in the posteromedial femorotibial joint recess (axial series 2 image 288). There are small plantar and posterior calcaneal spurs. Osseous structures are normal without evidence of fracture or dislocation. No lytic or blastic osseous masses. Soft Tissues: There is a small knee joint effusion. The deep soft tissue structures are unremarkable. The superficial soft tissues are unremarkable without evidence of edema, hematoma, or foreign body. CT/Extremity Lower without Contra IMPRESSION: Tricompartment degenerative arthrosis of the right knee joint, most pronounced in the medial femorotibial compartment. 9 mm ossified loose body in the posteromedial femorotibial joint. Small knee joint effusion. Electronically Signed: Neymar Last MD at 15:43 EDT Reading Location ID and State: [facility] / [place] , Service support ,
== END | disposition home or self-care (01) ==
PROVIDERS: PCP Family Medicine; Referring Provider Specialist; Visit Provider Specialist
DX: M21.161 Varus deformity, not elsewhere classified, right knee (principal)
CPT/HCPCS: 73700

== ENCOUNTER 2023-03-01 05:04 | Day surgery (SDC) | payer MEDICAID, SELFPAY ==
[2023-02-03 08:53] LABS: Magnesium 2.1 mg/dL (1.6-2.6)
[2023-02-03 09:02] LABS: Albumin, Serum 3.3 g/dL (3.2-5.0)
--- NOTE | 2023-02-13 12:37 | HP.PCM_ITS ---
History and Physical History and Physical? Patient Name: Anjelica Palmer : 1975 From:? KIMBERLY CAST PA-C? DATE OF PRE-OPERATIVE EXAM: 02/13/2023 DATE OF SURGERY:? 03/01/2023 SCHEDULED PROCEDURE:? Robotic-assisted right partial knee replacement versus total knee arthroplasty HISTORY OF PRESENT ILLNESS: Preoperative history and physical exam was performed on February 13, 2023.? This is a 47-year-old female who has had ongoing pain for over a year.? Her pain has been aching, sharp, sore.? She has increased pain with going up and down stairs and walking.? She has difficulty with activities of daily living including housework and any leisure activities such as walking or standing too long.? She has tripped/stumbled due to the knee pain.? She had previous knee arthroscopy on the right knee in 2007 for ACL, MCL and meniscus.? She has attempted conservative care including rest, heat, elevation with relief.? She has been through physical therapy.? She attempted an casework specialist brace which did not fit appropriately and Falling down.? She has had previous Visco supplementation injections which only gave him 1-2 weeks of relief.? Patient states she has seen minimal results with conservative care.? She has been able to adjust her job duties to help avoid heavy lifting but still requires significant use of stairs.? Pain continues to be located over the medial aspect of the right knee.? After failing conservative measures and discussing all treatment options with Dr. Javad Garcia, the patient does wish to proceed with a robotic-assisted right partial knee replacement versus total knee arthroplasty.? We have obtain surgical clearance from the primary care physician Dr. Mckay.? Patient denies past history of DVT or pulmonary embolism.? She denies recent chest pain, shortness breath, fevers chills or recent infections. REVIEW OF SYSTEMS: Review Of Systems: Constitutional: Denies change in appetite, fever and weight change. Cardiovasular: Denies chest pain, heart murmur and irregular heartbeat. Respiratory: Reports shortness of breath and wheezing, but denies cough, pneumonia and tuberculosis. Gastrointestinal: Denies constipation, diarrhea, heartburn, nausea, rectal itching, bloody stools and vomiting. Genitourinary: Denies incontinence. Musculoskeletal: Reports gait disturbance, leg swelling, pain, trouble walking and weakness. Skin: Reports tattoo, but denies Raynaud's and history of shingles. Neurological: Denies ambulatory dysfunction, dizziness, numbness/tingling and tremor. Psychiatric: Denies anxiety, insomnia and stress. Hematologic/Lymphatic: Denies anemia, bleeding/bruising tendency and past transfusion. Reviewed and updated. PAST MEDICAL HISTORY: Advance Care Plan: No Advance Directives Effective Date: 04/15/2021 Past Medical History: Medical Problems: Arthritis Accidents: None Surgical Hx: Hysterectomy - (2014) Knee Arthroscopy Rt - (2007) ACL, MCL, MENISCUS Anesthesia Complications: None Assistive Devices: None Reviewed, no changes. SOCIAL HISTORY: Social History: Marital: Single.Occupation: [employer].Work Status: Currently Working.Hand Dominance: Right-handed. Personal Habits:? Cigarette Use: Never Smoked Cigarettes.Smokeless Tobacco: Never Used Smokeless Tobacco.E-Cigarette Use: Never used.Alcohol: Denies use.Drug Use: Denies Use.Enjoy Exercising: Daily. Reviewed and updated. VITALS: Ht: 65 Wt: 232lb Wt k.235 BMI: 38.6 BP: 148/82 Pulse: 66 Resp: 8 T: 97.4 T: 36.3C Pain Level: 3 O2SatR: 99 ALLERGIES: No Known Drug Allergy? MEDICATIONS: Oxycodone HCL 5 mg 1-2 tab by mouth every 4 hours, Meloxicam 7.5 mg take 1 tablet by mouth twice a day, Doxycycline Hyclate 100 mg 1 by mouth twice a day, Zofran 4 mg 1-2 by mouth every 8 as needed nausea, Famotidine 20 mg 1 by mouth every day, Albuterol Sulfate (2.5 mg/3ml) 0.083% as needed, Montelukast Sodium 10 mg 1 by mouth every day PRE-OP EXAM:? General appearance:NORMAL? ? ? Other: Eyes: Conjunctivae and lids: NORMAL? Pupils: ERR Ears, Nose, Mouth, and Throat: NORMAL? Other: Inspection of lips, teeth and gums: NORMAL? ?Other: Neck: Examination of neck: no masses noted. Respiratory: Assessment of respiratory effort: NORMAL? ?Other: ?Auscultation of lungs: clear to auscultation no wheezes, rhonchi or rales. Cardiovascular:? Auscultation of heart: regular rate and rhythm, no murmurs, gallops or rubs. PHYSICAL EXAMINATION: Patient does walk with a mild antalgic gait.? Right knee is without erythema or signs of infection.? She has had previous surgery for arthroscopic which the pr evious incisions are well healed.? Patient has moderate effusion to the right knee.? She continues to have tenderness to palpation along the medial joint line.? She has correctable varus alignment.? Range of motion: Lacks 7 full extension to 117 flexion.? There is 3 mm of MCL laxity with firm end point.? Stable to anterior/posterior drawer exam.? Sensation intact to light touch. IMAGING STUDIES: Previous x-rays of the right knee reveal varus alignment with medial joint space narrowing, subchondral sclerosis, osteophyte formation consistent with severe stage IV [id number] medial compartment osteoarthritis.? There is mild lateral patella tilt with mild patellofemoral joint space narrowing. IMPRESSION: 1.? Severe right knee medial compartment osteoarthritis with varus deformity PLAN: Dr. Javad Garcia did discuss and review with the patient all treatment options including surgical versus nonsurgical options.? Patient does wish to proceed with the above-stated procedure.? Potential risks, benefits, and complications of the procedure were discussed in detail including but not limited to , infection, nerve and blood vessel damage, persistent pain, numbness, tingling, paresthesias, blood clot, pulmonary embolism, and requirement for possible further surgery.? The patient expressed full understanding and has no further questions for the doctor.? Patient does agree to proceed with the above-stated procedure and has signed the surgery consent form. POST-OP MEDICATION PLAN: Pain Medications: Patient was given the following medications at the preoperative visit: Oxycodone, meloxicam, Zofran, famotidine.? She was instructed to merchandise pickup/receiving associate extra strength Tylenol, aspirin 81 mg, and senna.? All medications were discussed in great detail.? Patient will also be utilizing 2 protein drinks daily due to nutritional lab work. DVT Prophylaxis:? Aspirin 81 mg twice daily for 4 weeks postoperatively.? Denies past history of DVT or pulmonary embolism This dictation was created using voice recognition software. Phonetic and/or grammatical errors may exist. ___? I have re-examined the patient.? There are no clinical changes since date of exam. ___? See progress notes for changes. ___? Dictated on admission Date: ? ? ?Time: Signature:
--- NOTE | 2023-02-28 08:00 | KNEE_PTH ---
PATIENT: ULISES HAMMOND [place] [facility] [place][id number] AGE/SX: 47/F ROOM: RE03/01/[address]: Dr. Javad Garcia MD : 1975 BED: DIS: 03/01/2023 SPEC #: [id number] RECD: 03/01/23 12:12 STATUS: ADALGISA MIS #: [id number] ARTIE: 02/28/23 08:[address]: Javad Garcia DEPT: SURGICAL PATHOLOGY RECD BY: Raysa Hernández ENTERED: 03/01/23 12:54 SP TYPE: TOTAL KNEE OTHR DR: Dr. Jean Mckay MD Tissues: Knee, NOS Procedures: Decalcification bone/plaque Surgery Specimen Level IV HEADER OPERATION: ROSE, robotic assisted total knee arthroplasty PRE-OP DIAGNOSIS: Severe right knee medial compartment osteoarthritis TISSUE SUBMITTED: Right knee bone and tissue MICROSCOPIC DIAGNOSIS Bone and tissue of right knee, total knee resection: Severe degenerative joint disease. AM:ivan 03/06/2023 MICROSCOPIC DESCRIPTION Slides are reviewed. GROSS DESCRIPTION Received is one container designated bone and soft tissue right knee. The specimen consists of multiple fragments of hassan-yellow bone measuring in aggregate 11 x 9 x 3.5 cm. Also in the specimen container are multiple fragments of yellow-white soft tissue measuring in aggregate 9 x 3 x 1.5 cm. A number of bony fragments contain articular surfaces consistent with tibial plateau and femoral condyle and displaying prominent osteophyte formation, eburnation and bone erosion. Director Of Catering Sales sections are submitted in two cassettes as follows: 1 - soft tissue, 2 - bone after decalcification. / SJ:cc 03/01/23 TC:5 [facility]: [id number]
[2023-03-01] VITALS (9 sets, daily range): BP systolic 118–158; BP diastolic 71–99; PULSE 60–92; RESP 14–18; TEMP 35.8–36.7; O2SAT 98–100; BMI 40.8
[2023-03-01] MEDS: Lactated Ringers 1,000 ML 999 ML IV ×2 (06:14→10:30)
[2023-03-01] MEDS: Magnesium 1 GM over 15 mins IV (06:14)
[2023-03-01] MEDS: Acetaminophen 500 MG Tablet 1000 MG PO ×2 (06:16→14:00)
[2023-03-01] MEDS: Gabapentin 600 MG Tablet PO (06:16)
[2023-03-01] MEDS: Celecoxib 200 MG Capsule 400 MG PO (06:16)
[2023-03-01] MEDS: Vancomycin HCl 1,500 MG in 0.9% Normal Saline (500mL Bag) 500 ML 167 MG IV (06:20)
[2023-03-01 06:42] LABS: Bedside Glucose 98 mg/dL (74-106)
[2023-03-01] MEDS: Cefazolin 2 GM in 0.9% Normal Saline (100mL Bag) 100 ML IV (08:31)
[2023-03-01] MEDS: TXA 1000mg in NS100 100ml (IVPB at Incision) 660 MG IV (08:40)
[2023-03-01] MEDS: dexAMETHasone 10 MG/ML Vial IV (09:24)
[2023-03-01] MEDS: JPS (Morphine 10mg/ml) OPERA.SITE (09:33)
[2023-03-01] MEDS: TXA 1000mg in NS100 100ml (IVPB at Closure) 660 MG IV (10:07)
--- NOTE | 2023-03-01 10:07 | PCM.OPRPT ---
Report of Operation Date of Procedure: 03/01/23 Pre-Operative Diagnosis: Right knee primary osteoarthritis Post-Operative Diagnosis: Right knee primary osteoarthritis Surgery/Procedure Performed:: Right minimally invasive robotic total knee replacement Description of Surgical Findings:: Stable knee with good patella tracking. Patient had grade 4 lesions on the trochlea as well as the patella and a small grade 4 lesion in the lateral compartment. Based on this despite our original plan to proceed with a partial knee replacement based on patient's preoperative consent we elected to proceed with a total knee replacement today due to these multiple areas of grade 4 lesions in conjunction with her stage IV osteoarthritis of the medial compartment. Surgeon: Javad Garcia plant operations manager: Jackson Patrick Type of Anesthesia: Spinal Anesthesiologist: Edvin Miramontes Special Medications: 2 g Ancef, 1 g TXA at incision, 1 g TXA closure, 10 mg Decadron, joint cocktail (5 mg Duramorph, 30 mL of 0.5% Ropivicaine, 1000 units of epinephrine, 30 mg of Toradol). Vancomycin due to positive preoperative staph screening Specimen's removed: Bony cuts Estimated Blood Loss (mL): 200 Fluids Replaced: 1000 ML crystalloid Description of Procedure: Implants used: 1. Osiel size 3 triathlon cruciate retaining distal femoral press-fit component 2. [place] size 3 press-fit tritanium tibial baseplate 3. [place] X3 9 mm CS polyethylene 4. [place]iel X3 32 mm asymmetric patella Brief history operative indications: 47-year-old F with history of right knee osteoarthritis with radiographic findings with loss of joint space, osteophyte formation and subchondral sclerosis. Failed conservative measures as mentioned in the H&P. Discussion of total knee arthroplasty as well as risk and benefits were discussed the patient including but not limited to blood loss, DVTs, PEs, neurovascular damage, general risk of anesthesia including loss of life, and stiffness or instability were discussed with patient. Patient demonstrated understanding and was able to sign informed consent. Procedure: On the date of procedure patient's right lower extremity was marked in the preoperative area. The patient was then taken back to the operating room where the patient was placed on the table in the supine position. All bony prominences were identified a well-padded. Anesthesia assumed control of the C-spine and airway and remained controlled throughout the remainder of the procedure. A tourniquet was placed on the right upper thigh and the leg was prepped in a sterile fashion. The surgeon then scrubbed at this time .Upon reentering the room right lower extremity was draped in a standard orthopedic fashion. A timeout was then called and everyone agreed upon the side, the site, the procedure to be performed, patient's identity and antibiotics given. Esmarch bandage was used to exsanguinate the extremity and the tourniquet was placed up to 250 mmHg with the knee in flexion. A midline skin incision was made and sharp dissection was taken down through skin subcutaneous tissue and fat. The standard medial parapatellar incision was made and the patella was subluxed laterally. An Appropriate deep MCL release was done and the fat pad was resected. Our attention was then directed to the patella. The patella was everted and a flat resection was made. The knee was then flexed up in 2 femoral pins were placed inside the incision and 2 tibial pins were placed outside the incision in the medial tibia bicortically. Once this was completed the 2 checkpoints in the femur and tibia were placed. Knee was then flexed up and the bony landmarks were registered. Once this was completed knee was taken through range of motion and manually stressed allowing us to a plan for an appropriate tibial cut. The robotic arm was brought into the field sterilely and checkpoint and saw were registered. Based on the patient's deformity the tibial cut was made in 2 degrees of varus. At this time the tensioner was then placed in the joint and ligament tension was checked at 90 degrees and full extension. Based on the patient's ligamentous tension appropriate adjustments were made to the operative plan and ligament releases were done. Once we were happy with our operative plan with balanced flexion and extension gaps our attention was directed to the femur. The robot was brought into the field sterilely and registered. Posterior condylar cuts, anterior chamfer cuts and anterior cuts were appropriately made for a size 3 femur. When these were completed the saws were switched out in the distal femoral and posterior chamfer cuts were made. Protecting the soft tissue throughout this time. A size 3 tibial base plate was selected. the knee was flexed to 90 degrees and the soft tissues and posterior osteophytes were removed from the joint. 40 cc of the periarticular injection was injected into the posterior medial corner of the joint. The appropriate trials were then placed on the femur and tibia. A trial polyethylene was trialed to ensure proper balancing and stability of the knee. The appropriate tibial internal rotation was then marked with a bovie. Our attention was then directed to the patella. The lug holes were drilled and the patella trial was placed. Patellar tracking was checked and deemed appropriate. Once we were happy lug holes were drilled for the femur and trial components were removed. the tibia was subluxed and pinned into place and the keel was punched and drilled appropriately. Final components were verified and opened, and cement was mixed in a vacuum. [employer] Simplex cement was used. The wound was copiously irrigated with normal saline. When the cement was ready the components were impacted into place starting with the tibia, femur and finally cementing the patella. The trial poly component was placed and the knee was placed in full extension. The tracking, alignment and balance were verified and a size 9 mm CS polyethylene component was placed. Once the final components were placed a 3-minute dilute Betadine lavage was performed followed by an Irrisept lavage was performed and the wound was copiously irrigated with normal saline solution and the periarticular injection was given. The wound was closed in a layer fernandez fashion using #1 vicryl interrupted sutures for the arthrotomy, 2-0 interrupted Vicryl suture for the subcuticular layer and shaun for final skin closure. A sterile compressive dressing was then placed. The patient was then awakened from anesthesia, transferred to the [facility] and transferred to the PACU for recovery. Post op plan DVT ppx: ASA 81mg BID, thigh high compression stockings Follow up: in office in 2 weeks for wound check PT: to start POD #0 at hospital, outpatient PT should be arranged. Patient has positive preoperative staph screening she will be placed on doxycycline for 2 weeks postoperatively as she is high risk for postoperative staph infections My physician preschool assistant was a vital part of this case. He was important in appropriate retraction during the case, and protection of soft tissues during bony cuts. His intimate knowledge of the case and my steps aided in safe and expedient completion of the procedure as well as appropriate position of the leg during the case. He was also vital in assisting with closure under my direct supervision. Due to the complexity of this case robotic arm was used to assist in the surgery to improve accuracy and clinical outcomes. Complications No intraoperative complications Admit VTE Documentation VTE Present on Admission: No VTE Mechan Device Prophylaxis: SCD's and Thigh High PAYAL Hose VTE Pharm Prophylaxis ordered?: Yes
--- NOTE | 2023-03-01 10:40 | RAD_ITS ---
STUDY: X-RAY - RIGHT KNEE REASON FOR EXAM: Female, 47 years old. TKA -- in PACU TECHNIQUE: 2 view(s) of the knee. COMPARISON: Comparison is made with prior study dated February 12, 2021. FINDINGS: Normal visualized distal femur. Normal visualized proximal tibia and fibula. Normal proximal tibiofibular articulation. The patient is status post left total knee replacement. There is good alignment. Postoperative soft tissue changes. RAD/Knee 1 or 2 Views IMPRESSION: Status post left total knee replacement. There is good alignment. Postoperative soft tissue changes. Electronically Signed: Jean Carlos Gallegos MD at 14:22 EST ,
[2023-03-01] MEDS: Ketorolac 30 MG/ML Syringe IV (11:49)
[2023-03-01] MEDS: Cefazolin 1 GM/50 ML BAG IV (12:25)
== END 2023-03-01 17:11 | disposition home or self-care (01) ==
LOC: SDC 05:06 → AC 05:13
PROVIDERS: Anesthesiology; PCP Family Medicine; Referring Provider Specialist; Visit Provider Specialist
PROC: (CPT 27447; principal; 2023-03-01 07:30)
DX: M17.11 Unilateral primary osteoarthritis, right knee (principal); M21.161 Varus deformity, not elsewhere classified, right knee; J45.909 Unspecified asthma, uncomplicated; Z90.710 Acquired absence of both cervix and uterus; J30.9 Allergic rhinitis, unspecified
CPT/HCPCS: 27447; S2900; 01402; 64450; 73560; 82040; 82962; 83735; 87077; 87081; 88305; 88311; 97162; C1776; J7040; J7120; J2405; J3475

== ENCOUNTER 2023-04-23 15:53 | Emergency (ER) | payer MEDICAID, SELFPAY ==
[2023-04-23 16:01] VITALS: BP 165/108; PULSE 118; RESP 25; TEMP 36.2; O2SAT 100; BMI 39.4
--- NOTE | 2023-04-23 16:05 | ED.VIS.DYS ---
HPI History of Present Illness Chief Complaint: Shortness of Breath Informant: patient Narrative Narrative: Patient presents with asthma exacerbation. She states this started yesterday afternoon. She feels as though she was exposed to something but does not know of anything that she was actually exposed to. She states she started wheezing. She used her albuterol and it helped a lot. But she did not sleep well last night. She was wheezing a lot. This morning she took her montelukast another albuterol. Again it helped but it comes back. She has not been having fevers or chills or muscle aches. No runny nose. She is not coughing anything up. She is not having chest pain. She has not been on steroids for a long time. She has never been admitted overnight to the hospital for her asthma. [facility] Medical History Allergic rhinitis Anemia Arthritis Asthma History of edema History of pain when walking Non-smoker Shortness of breath on exertion Wears glasses Home Medications albuterol sulfate 90 mcg/actuation aerosol inhaler 1 inh inhalation PRN PRN shortness of breath or wheezing 02/02/23 [History Last Taken Unknown] fluticasone propionate 230 mcg-salmeterol 21 mcg/actuation HFA inhaler (Advair HFA) 2 inh inhalation DAILY 02/02/23 [History Last Taken Unknown] montelukast 10 mg tablet 10 mg PO DAILY 02/02/23 [History Last Taken Unknown] prednisone 20 mg tablet 60 mg (3 x 20 mg) PO DAILY #15 TABLETS 04/23/23 [Rx Last Taken Unknown] Allergy/AdvReac Type Severity Reaction Status Date / Time No Known Allergies Allergy Verified 04/23/23 16:03 Family History Other Arthritis Breast cancer CVA (cerebral vascular accident) Diabetes Hypertension Seizures Surgical History Hx of arthroscopy of right knee Hx of hysterectomy Social History Smoking Status: Never smoker second hand exposure: Yes ROS ROS ED ROS Narrative A complete review of systems was performed and is negative except as documented in the history of present illness. Some specific details below. Constitutional: No recent fevers or chills. No malaise. EYE: No discharge ENT: No difficulty swallowing. No swelling. No pain. No reflux symptoms. CV: No chest pain or palpitations. No syncope. Respiratory: See history of present illness. GI: No abdominal pain. No nausea vomiting diarrhea. No blood in stool. : No frequency dysuria or hematuria. Musculoskeletal: No recent trauma. No pains. No swelling. Skin: No rash. Nondiaphoretic. Neuro: No weakness or numbness. Endocrine: No polyuria or polydipsia. EXAM Physical Exam Narrative Exam Narrative: CONSTITUTIONAL: Patient is nontoxic in appearance. She carries on conversation but occasionally shortness of sentences because of the breathing. HEENT: No notable trauma. Mucous membranes moist. No swelling. No stridor. EYES: No injection. NECK:No JVD. No stridor. CARDIOVASCULAR: Mildly tachycardic rate. Regular rhythm. No notable murmur. No JVD. RESPIRATORY: Patient does not need to be intubated at all. She is working a little more to breathe though. She is tight. She has diffuse expiratory wheezes. No rhonchi. No apparent pain with a deep breath. GASTROINTESTINAL: Not distended. Bowel sounds are normal. No tenderness. No guarding. No rebound. No palpable mass. No bruit is heard. GENITOURINARY: No tenderness over the bladder. No CVA tenderness. MUSCULOSKELETAL: Atraumatic. No peripheral edema. No cord. No tenderness along the deep venous system. No asymmetry. No distended veins. NEUROLOGICAL: Patient is alert and appropriate. No focal deficit noted. SKIN: No noted rashes. No diaphoresis. PSYCHIATRIC: Patient is calm. Mood is appropriate. Const Vital Signs: 04/23/23 16:01 04/23/23 16:11 04/23/23 16:50 Temperature 97.2 F L Temperature Source Temporal Pulse Rate 118 H 108 H Respiratory Rate 25 H 20 H Respiratory Effort Short of Breath Accessory Muscle Use Nasal Flaring Respiratory Depth Deep Respiratory Pattern Tachypnea Blood Pressure 165/108 H Blood Pressure Mean 127 Pulse Ox 100 Oxygen Delivery Method Room Air Room Air 04/23/23 17:41 Temperature Temperature Source Pulse Rate 98 Respiratory Rate 22 H Respiratory Effort Respiratory Depth Respiratory Pattern Blood Pressure 157/92 H Blood Pressure Mean 113 Pulse Ox 97 Oxygen Delivery Method Room Air MDM MDM MDM Narrative Medical decision making narrative: My independent interpretation of her single view AP chest x-ray shows no acute process. Patient was given DuoNeb and this helped. She got another albuterol and she was improved. I went back to check her again and she is calmer. Her heart rate is down. She is breathing easily. Her saturations are still good. She still has a little bit of a wheeze but she is moving markedly more air. I think we can get her home. I will give her another breathing treatment here. We will get her on 5 days of steroids. I will see if we get a spacer for her albuterol Radiography Diagnostic Testing: Clinical Impression(s) from Imaging Studies Chest X-Ray 04/23/23 16:32 IMPRESSION: No radiographic evidence of acute cardiopulmonary disease. Electronically Signed: Tonya Yoder MD at 16:51 EST Reading Location ID and State: [facility] / MD Tel , Service support , Discharge Plan Triage Chief Complaint: Shortness of Breath ED Provider: Jake Blandon Dx/Rx/DC Orders Clinical Impression: Asthma exacerbation Instructions: ED Asthma, Acute (Adult) Prescriptions: New prednisone 20 mg tablet 60 mg PO DAILY Qty: 15 0RF No Action montelukast 10 mg tablet 10 mg PO DAILY albuterol sulfate 90 mcg/actuation HFA aerosol inhaler 1 inh INHALATION PRN PRN (Reason: shortness of breath or wheezing) fluticasone propion-salmeterol [Advair HFA] 230-21 mcg/actuation HFA aerosol inhaler 2 inh INHALATION DAILY Primary Care Provider: Jean Mckay Referrals: Jean Mckay MD [Primary Care Provider] - 3-5 Days Disposition Disposition: Home, Self Care
[2023-04-23] MEDS: predniSONE 20 MG Tablet 60 MG PO (16:08)
[2023-04-23] MEDS: Albuterol 2.5 MG/3 ML VIAL.NEB. INHALATION (16:09)
[2023-04-23] MEDS: Ipratropium/Albuterol Sulfate 3 ML AMPUL.NEB INHALATION ×2 (16:09→18:02)
[2023-04-23 16:11] VITALS: PULSE 108; RESP 20
--- OUTSIDE RECORDS SUMMARY | 2023-04-23 16:31 | XMS RPT_ITS | CCD ---
Author Name Unknown Address [facility] [address] [place] [address] Organization [facility] Care Team Providers Care Spinning Operator Name Role Phone GONSALO WRAY Unavailable Unavailable PHYSICIAN, NONE Unavailable Unavailable Results Test Name Value Interpretation Reference Range Facil ity Encounters Encounter Date Encounter Type Care Provider Facility Start: 07-09-2017 End: 07-10-2017 Emergency department patient visit GONSALO BarretoLuis WRAY Facil ity:B Payers Date Payer Category Payer Unknown [id number] Summary Purpose Family History No Family History Records Found Advance Directives No Advanced Directives Records Found Additional Source Comments INFORMATION SOURCE (unrecogn ized section and content) FOR RECORDS PERTAINING TO PATIENTS WHO ARE OR HAVE BEEN ENROLLED IN A CHEMICAL DEPENDENCY/SUBSTANCEABUSE PROGRAM, SOME INFORMATION MAY BE OMITTED. This clinical summary was aggregated from multiple sources. Caution should be exercised in using it in the provision of clinical care. This summary normalizes information from multiple sources, and as a consequence, information in this document may materially change the coding, format and clinical context of patient data. In addition, data may be omitted in some cases. CLINICAL DECISIONS SHOULD BE BASED ON THE PRIMARY CLINICAL RECORDS. [employer] [facility]. provides no warranty or guarantee of the accuracy or completeness of information in this document.
--- NOTE | 2023-04-23 16:32 | RAD_ITS ---
INDICATION: cough EXAMINATION/TECHNIQUE: X-RAY - XR Chest 1 View COMPARISON: April 27, 2020 FINDINGS: LINES/DEVICES: None. LUNGS: No consolidation, edema or effusion. No pneumothorax. MEDIASTINUM AND CARDIOVASCULAR STRUCTURES: Cardiac silhouette not enlarged. Central airways and mediastinal contour are unremarkable. BONES AND SOFT TISSUES: Unremarkable. RAD/Chest 1 View (Portable) IMPRESSION: No radiographic evidence of acute cardiopulmonary disease. Electronically Signed: Tonya Yoder MD at 16:51 EST ,
[2023-04-23 16:50] VITALS: O2SAT 100
[2023-04-23 17:41] VITALS: BP 157/92; PULSE 98; RESP 22; O2SAT 97
[2023-04-23] MEDS: INHALER, ASSIST DEVICES 1 EACH SPACER INHALATION (18:01)
[2023-04-23 18:02] VITALS: BP 151/95; PULSE 91; RESP 15; O2SAT 95
[2023-04-23 18:04] VITALS: PULSE 101; RESP 23
== END 2023-04-23 18:31 | disposition home or self-care (01) ==
PROVIDERS: Emergency Provider Emergency Medicine; PCP Family Medicine; Visit Provider Emergency Medicine
DX: J45.901 Unspecified asthma with (acute) exacerbation (principal); Z90.710 Acquired absence of both cervix and uterus
CPT/HCPCS: 94640; 71045; 99282

== ENCOUNTER 2023-08-14 19:41 | Emergency (ER) | payer MEDICAID, SELFPAY ==
[2023-08-14 19:41] VITALS: BP 172/118; PULSE 92; RESP 16; TEMP 35.7; O2SAT 99; BMI 40.6
[2023-08-14 20:09] VITALS: PULSE 95; RESP 18
[2023-08-14] MEDS: Ipratropium/Albuterol Sulfate 3 ML AMPUL.NEB INHALATION (20:09)
[2023-08-14] MEDS: Albuterol 2.5 MG/3 ML VIAL.NEB. INHALATION ×3 (20:22→20:49)
--- NOTE | 2023-08-14 20:26 | EX.ED.DYSGE1 ---
HPI History of Present Illness Chief Complaint: Asthma Informant: patient Onset/Context/Timing Onset: Days Context: Gradual Onset Timing: Waxes and wanes Narrative Narrative: Patient presents secondary to asthma exacerbation. She reports chest tightness and shortness of breath for the past couple days. Symptoms will improve for short time with her rescue inhaler but then returned. No fever or chills. No significant cough. She states she will often get exacerbations when the weather is changing like this. [facility], [facility] Medical History Allergic rhinitis Anemia Arthritis Asthma History of edema History of pain when walking Non-smoker Shortness of breath on exertion Wears glasses Home Medications albuterol sulfate 90 mcg/actuation aerosol inhaler 1 inh inhalation PRN PRN shortness of breath or wheezing 02/02/23 [History Last Taken Unknown] fluticasone propionate 230 mcg-salmeterol 21 mcg/actuation HFA inhaler (Advair HFA) 2 inh inhalation DAILY 02/02/23 [History Last Taken Unknown] montelukast 10 mg tablet 10 mg PO DAILY 02/02/23 [History Last Taken Unknown] prednisone 20 mg tablet 60 mg (3 x 20 mg) PO DAILY #15 TABLETS 04/23/23 [Rx Last Taken Unknown] prednisone 20 mg tablet 40 mg (2 x 20 mg) PO DAILY #8 tabs 08/14/23 [Rx Last Taken Unknown] Allergy/AdvReac Type Severity Reaction Status Date / Time No Known Allergies Allergy Verified 08/14/23 19:41 Family History Other Arthritis Breast cancer CVA (cerebral vascular accident) Diabetes Hypertension Seizures Surgical History Hx of arthroscopy of right knee Hx of hysterectomy Social History Smoking Status: Never smoker second hand exposure: Yes ROS ROS ED Constitutional Constitutional ED: Denies chills or fever(s) Eyes Eyes: Denies discharge from eye(s) ENT ENT ED: Denies discharge from eye(s), rhinorrhea or sore throat Cardiovascular Cardiovascular: Reports chest pain Respiratory/Chest Respiratory/Chest: Reports dyspnea Gastrointestinal Gastrointestinal: Denies abdominal pain, nausea or vomiting Musculoskeletal Musculoskeletal: Denies back pain or extremity pain Integumentary Denies Abrasions or rash Neurologic Neurologic: Denies headache(s) or weakness Psychiatric Psychiatric: Denies anxiety or depression Allergic/Immunologic Allergic/Immunologic ED: Denies lip swelling or urticaria EXAM Physical Exam Const Vital Signs: 08/14/23 19:41 08/14/23 20:09 08/14/23 21:26 Temperature 96.3 F L Temperature Source Temporal Pulse Rate 92 95 Respiratory Rate 16 18 Respiratory Effort Short of Breath Respiratory Depth Shallow Respiratory Pattern Normal Tachypnea Blood Pressure 172/118 H Blood Pressure Mean 136 Pulse Ox 99 Positive well nourished and well developed General Appearance ED: well developed HEENT Reports moist mucous membranes Eyes EOMs intact bilaterally Chest Wall inspection of chest normal and palpation of chest normal Resp Resp Narrative: Tight expiratory wheezes bilaterally. Cardio regular rate and regular rhythm GI non-tender Palpation: soft Extremity normal to inspection Neuro oriented x3 and no sensory deficits noted Motor Exam: strength 5/5 throughout Psych mental status grossly normal Skin no rashes or lesions noted MDM MDM MDM Narrative Medical decision making narrative: Patient given aerosols along with p.o. prednisone. History & Record Review Discussion w/independent historian: Patient Treatment and Re-Evaluation :: Repeat evaluation patient resting comfortably. Good air movement throughout on lung auscultation. Patient has an albuterol inhaler that she can use. She is given a prednisone prescription. Return instructions provided. Discharge Plan Triage Chief Complaint: Asthma ED Provider: Amy Ruelas Dx/Rx/DC Orders Clinical Impression: Asthma exacerbation Instructions: ED Asthma, Acute (Adult) Prescriptions: New prednisone 20 mg tablet 40 mg PO DAILY Qty: 8 0RF No Action montelukast 10 mg tablet 10 mg PO DAILY albuterol sulfate 90 mcg/actuation HFA aerosol inhaler 1 inh INHALATION PRN PRN (Reason: shortness of breath or wheezing) fluticasone propion-salmeterol [Advair HFA] 230-21 mcg/actuation HFA aerosol inhaler 2 inh INHALATION DAILY prednisone 20 mg tablet 60 mg PO DAILY Qty: 15 0RF Primary Care Provider: Jean Mckay Referrals: Jean Mckay MD [Primary Care Provider] - 1 Week if not improving Disposition Disposition: Home, Self Care Discharge Date/Time: 08/14/23 22:31
[2023-08-14] MEDS: predniSONE 20 MG Tablet 60 MG PO (20:59)
--- NOTE | 2023-08-14 21:09 | CPS ---
x3 Albuterol given to pt. in ER as well
== END 2023-08-14 22:31 | disposition home or self-care (01) ==
PROVIDERS: Emergency Provider Emergency Medicine; PCP Family Medicine; Visit Provider Emergency Medicine
DX: J45.901 Unspecified asthma with (acute) exacerbation (principal); Z79.51 Long term (current) use of inhaled steroids; Z90.710 Acquired absence of both cervix and uterus
CPT/HCPCS: 94640; 99282

== ENCOUNTER 2023-08-23 18:13 | Emergency (ER) | payer MEDICAID, SELFPAY ==
[2023-08-23 18:14] VITALS: BP 133/93; PULSE 107; RESP 18; TEMP 36.4; O2SAT 100; BMI 40.1
[2023-08-23 19:33] VITALS: O2SAT 97
--- NOTE | 2023-08-23 19:40 | RAD_ITS ---
EXAM: XR CHEST, 1 VIEW CLINICAL INDICATION: Shortness of Breath TECHNIQUE: Frontal view of the chest. COMPARISON: 04/23/2023 FINDINGS: LUNGS AND PLEURAL SPACES: No significant abnormality. No consolidation or edema. No pneumothorax. No effusion. HEART: No significant abnormality. Cardiac silhouette not enlarged. MEDIASTINUM: Central airways and mediastinal contour are unremarkable. BONES/JOINTS: No significant abnormality. No acute fracture. SOFT TISSUES: No significant abnormality. RAD/Chest 1 View (Portable) IMPRESSION: No radiographic evidence of acute cardiopulmonary disease. Electronically Signed: Milton Santos DO at 20:15 EDT ,
--- NOTE | 2023-08-23 19:42 | ED.VIS.DYS ---
HPI History of Present Illness Chief Complaint: Asthma Narrative Narrative: 47-year-old female past medical history of mild intermittent asthma presents with increased shortness of breath and asthma exacerbation. She states she was seen in the emergency department 1 to 2 weeks ago and was placed on 3 days of steroids. She has had to use her inhaler more. She usually does not get exacerbations this frequently. This is the only year that she is come to the emergency department twice. She states has never been hospitalized or intubated for her asthma. She does not see a miller helper but sees a primary care provider. She denies any fevers or chills, no cough, no other symptoms except for her increasing shortness of breath. [facility] Medical History Allergic rhinitis Anemia Arthritis Asthma History of edema History of pain when walking Non-smoker Shortness of breath on exertion Wears glasses Home Medications albuterol sulfate 90 mcg/actuation aerosol inhaler 1 inh inhalation PRN PRN shortness of breath or wheezing 02/02/23 [History Last Taken Unknown] fluticasone propionate 230 mcg-salmeterol 21 mcg/actuation HFA inhaler (Advair HFA) 2 inh inhalation DAILY 02/02/23 [History Last Taken Unknown] montelukast 10 mg tablet 10 mg PO DAILY 02/02/23 [History Last Taken Unknown] prednisone 20 mg tablet 60 mg (3 x 20 mg) PO DAILY #15 TABLETS 04/23/23 [Rx Last Taken Unknown] prednisone 20 mg tablet 40 mg (2 x 20 mg) PO DAILY #8 tabs 08/14/23 [Rx Last Taken Unknown] Allergy/AdvReac Type Severity Reaction Status Date / Time No Known Allergies Allergy Verified 08/23/23 18:14 Family History Other Arthritis Breast cancer CVA (cerebral vascular accident) Diabetes Hypertension Seizures Surgical History Hx of arthroscopy of right knee Hx of hysterectomy Social History Smoking Status: Never smoker second hand exposure: Yes ROS ROS ED ROS Narrative Constitutional: No fever, no chills. HEENT: No sore throat. No neck pain. No loss of vision. No rhinorrhea. Cardiovascular: No chest pain. No palpitations. No pedal edema. Respiratory: No cough, positive shortness of breath. Abdominal: No abdominal pain. No nausea. No vomiting. Genitourinary: No dysuria. No hematuria. Musculoskeletal: No myalgias. No arthralgias. Neurologic: No headaches. No dizziness. No lightheadedness. Skin: No rash. No change in color. Psychiatric: No depression. No anxiety. EXAM Physical Exam Narrative Exam Narrative: Afebrile. Vital signs noted. HEENT: Normocephalic. Atraumatic. PERRL, EOMI. Neck soft and supple. No point tenderness or step off. Cardiovascular: Regular rate and rhythm. No murmurs, rubs, or gallops appreciated. Respiratory: No tachypnea. Speaking in full sentences. Diffuse expiratory wheezing bilaterally. Moving a fair amount of air. Gastrointestinal: Abdomen soft, nontender, with normoactive bowel sounds. No rebound or guarding. Neurological: Awake. Alert. Nonfocal, nonlateralizing. Skin: No rash. Normal color. No pallor. Musculoskeletal: No pedal edema. Full range of motion extremities. Const Vital Signs: 08/23/23 18:14 08/23/23 19:33 08/23/23 19:52 Temperature 97.6 F L Temperature Source Temporal Pulse Rate 107 H 100 Respiratory Rate 18 17 Respiratory Effort Short of Breath Respiratory Depth Normal Respiratory Pattern Normal Blood Pressure 133/93 H Blood Pressure Mean 106 Pulse Ox 100 Oxygen Delivery Method Room Air Room Air MDM MDM MDM Narrative Medical decision making narrative: Concern is for asthma exacerbation versus pneumonia versus pulmonary embolism. I have low suspicion for pulmonary embolism based on her history and physical. I reviewed her prior records. I do feel she would benefit from a longer steroid burst, and she was given an albuterol nebulizer treatment here in the emergency department. Chest x-ray 1 view was obtained and interpreted by myself independently. I see no evidence of consolidation or pneumothorax. I do not feel antibiotics are indicated. I reviewed the radiology report which confirms my independent interpretation. Upon repeat examination at approximately 2019, she has improved. Her pulse ox is 100% on room air without evidence of hypoxia. I feel she can be discharged to follow-up with pulmonology as needed. She was referred to Dr. Mora. She can also follow-up with her primary care provider. I will write her for a steroid burst for a full week of 40 mg, and for a new inhaler. Return instructions to the emergency department were reviewed. Disposition is discharged home in stable condition. Radiography Chest X-Ray - ED: 1 View and Read by ED Physician Diagnostic Testing: Clinical Impression(s) from Imaging Studies Chest X-Ray 08/23/23 19:40 IMPRESSION: No radiographic evidence of acute cardiopulmonary disease. Electronically Signed: Milton Santos DO at 20:15 EDT , Discharge Plan Triage Chief Complaint: Asthma ED Provider: Price Guallpa Dx/Rx/DC Orders Prescriptions: No Action montelukast 10 mg tablet 10 mg PO DAILY albuterol sulfate 90 mcg/actuation HFA aerosol inhaler 1 inh INHALATION PRN PRN (Reason: shortness of breath or wheezing) fluticasone propion-salmeterol [Advair HFA] 230-21 mcg/actuation HFA aerosol inhaler 2 inh INHALATION DAILY prednisone 20 mg tablet 60 mg PO DAILY Qty: 15 0RF prednisone 20 mg tablet 40 mg PO DAILY Qty: 8 0RF Primary Care Provider: Jean Mckay Referrals: Jean Mckay MD [Primary Care Provider] -
[2023-08-23] MEDS: Albuterol 2.5 MG/3 ML VIAL.NEB. INHALATION (19:51)
[2023-08-23 19:52] VITALS: PULSE 100; RESP 17
[2023-08-23] MEDS: predniSONE 20 MG Tablet 60 MG PO (20:08)
[2023-08-23 20:13] VITALS: BP 147/96; PULSE 108; RESP 18; TEMP 36.4; O2SAT 99
== END 2023-08-23 20:47 | disposition home or self-care (01) ==
PROVIDERS: Emergency Provider Emergency Medicine; PCP Family Medicine; Visit Provider Emergency Medicine
DX: J45.901 Unspecified asthma with (acute) exacerbation (principal); Z79.51 Long term (current) use of inhaled steroids; Z90.710 Acquired absence of both cervix and uterus
CPT/HCPCS: 71045; 94640; 99282

== ENCOUNTER 2023-09-08 20:53 | Emergency (ER) | payer MEDICAID, SELFPAY ==
[2023-09-08 20:54] VITALS: BP 155/99; PULSE 105; RESP 24; TEMP 35.5; O2SAT 98
--- NOTE | 2023-09-08 21:04 | EKG12_ITS ---
Test Reason : SOB Blood Pressure : / mmHG Vent. Rate : 109 BPM Atrial Rate : 109 BPM P-R Int : 142 ms QRS Dur : 080 ms QT Int : 342 ms P-R-T Axes : 075 054 038 degrees QTc Int : 460 ms Sinus tachycardia Otherwise normal ECG Confirmed by Harshil More ([id number]), art editor JANELL TOBIN ([id number]) on 09/11/2023 1:00:33 PM Referred By: ALFONSO Confirmed By:Harshil More
--- NOTE | 2023-09-08 21:08 | EDS_ITS ---
HPI History of Present Illness Chief Complaint: Asthma Narrative Narrative: 47-year-old female presenting with asthma exacerbation. She has extensive history of asthma. She was seen a couple of weeks ago for similar symptoms and was put on a prednisone burst. She states initially got better and now she noticed today starting at 3:00 she was more short of breath. She feels like she is wheezing. She tried her home inhaler but this was not working. Patient is also on inhaled steroids. She is also on montelukast. [facility] Medical History Wears glasses Arthritis Anemia Non-smoker Asthma Shortness of breath on exertion History of pain when walking History of edema Allergic rhinitis Home Medications ?Medication ?Instructions ?Recorded ?Last Taken ?Type albuterol sulfate 90 mcg/actuation 1 inh inhalation PRN PRN shortness 02/02/23 Unknown History aerosol inhaler of breath or wheezing fluticasone propionate 230 2 inh inhalation DAILY 02/02/23 Unknown History mcg-salmeterol 21 mcg/actuation HFA inhaler (Advair HFA) montelukast 10 mg tablet 10 mg PO DAILY 02/02/23 Unknown History prednisone 20 mg tablet 60 mg (3 x 20 mg) PO DAILY #15 04/23/23 Unknown Rx TABLETS prednisone 20 mg tablet 40 mg (2 x 20 mg) PO DAILY #8 tabs 08/14/23 Unknown Rx albuterol sulfate 90 mcg/actuation 1 - 2 puff inhalation Q4H PRN PRN 08/23/23 Unknown Rx aerosol inhaler (Ventolin HFA) Wheezing #1 ea prednisone 20 mg tablet 40 mg (2 x 20 mg) PO DAILY #14 tabs 08/23/23 Unknown Rx prednisone 50 mg tablet 50 mg PO DAILY #5 tabs 09/08/23 Unknown Rx Allergy/AdvReac Type Severity Reaction Status Date / Time No Known Allergies Allergy Verified 09/08/23 20:56 Family History Other Arthritis Breast cancer CVA (cerebral vascular accident) Diabetes Hypertension Seizures Surgical History Hx of arthroscopy of right knee Hx of hysterectomy Social History Smoking Status: Never smoker second hand exposure: Yes ROS ROS ED Constitutional Constitutional ED: Denies chills, fever(s) or sweats Eyes Eyes: Denies blurry vision or change in vision ENT ENT ED: Denies ear pain or sore throat Cardiovascular Cardiovascular: Denies chest pain, palpitations or racing heartbeat Respiratory/Chest Respiratory/Chest: Reports dyspnea and dyspnea on exertion; Denies cough or sputum Gastrointestinal Gastrointestinal: Denies abdominal pain, constipation, diarrhea, nausea or vomiting Genitourinary Genitourinary ED: Denies dysuria, hematuria or urinary frequency Musculoskeletal Musculoskeletal: Denies arthralgias, myalgias or neck pain Integumentary Denies abscess, Abrasions or rash Neurologic Neurologic: Denies headache(s), paresthesias or weakness Psychiatric Psychiatric: Denies anxiety, depression, suicidal ideation or suicidal thoughts Endocrine Endocrinology: Denies polydipsia or polyuria EXAM Physical Exam Const Vital Signs: 09/08/23 20:54 09/08/23 21:42 09/08/23 21:51 Temperature 96 F L Temperature Source Temporal Pulse Rate 105 H 106 H Respiratory Rate 24 H 16 Respiratory Effort Normal Respiratory Depth Normal Respiratory Pattern Normal Normal Blood Pressure 155/99 H Blood Pressure Mean 117 Pulse Ox 98 Oxygen Delivery Method Room Air Room Air 09/08/23 21:54 Temperature Temperature Source Pulse Rate 62 Respiratory Rate 22 H Respiratory Effort Respiratory Depth Respiratory Pattern Blood Pressure 146/90 H Blood Pressure Mean 108 Pulse Ox 98 Oxygen Delivery Method Room Air Positive well nourished General Appearance ED: NAD HEENT Reports moist mucous membranes atraumatic Eyes PERRL and EOMs intact bilaterally Neck no lymphadenopathy Resp Resp Narrative: Tachypneic Auscultation: wheezes expiratory wheezes and throughout Cardio Rate: tachycardic MDM MDM MDM Narrative Medical decision making narrative: Patient presenting with shortness of breath and wheezing. She feels like she having asthma exacerbation. On examination she is wheezing diffusely. She is slightly tachypneic but not using accessory muscles not tripoding. We recommend patient given Solu-Medrol IV 25 mg and breathing treatments on reevaluation she feels much better. Her lungs are clear. She feels she can go home. I recommend she start allergy medication such as Claritin or Zyrtec. She is currently on a burst of prednisone for the next 5 days and she has an inhaled corticosteroid and albuterol inhaler at home. Return precautions discussed. Impression: 1. Asthma exacerbation Discharge Plan Triage Chief Complaint: Asthma ED Provider: Damien Melchor Dx/Rx/DC Orders Instructions: ED Asthma, Acute (Adult) Prescriptions: New prednisone 50 mg tablet 50 mg PO DAILY Qty: 5 0RF No Action montelukast 10 mg tablet 10 mg PO DAILY albuterol sulfate 90 mcg/actuation HFA aerosol inhaler 1 inh INHALATION PRN PRN (Reason: shortness of breath or wheezing) fluticasone propion-salmeterol [Advair HFA] 230-21 mcg/actuation HFA aerosol inhaler 2 inh INHALATION DAILY prednisone 20 mg tablet 60 mg PO DAILY Qty: 15 0RF prednisone 20 mg tablet 40 mg PO DAILY Qty: 8 0RF prednisone 20 mg tablet 40 mg PO DAILY Qty: 14 0RF albuterol sulfate [Ventolin HFA] 90 mcg/actuation HFA aerosol inhaler 1 - 2 puff inhalation Q4H PRN PRN (Reason: Wheezing) Qty: 1 0RF Primary Care Provider: Jean Mckay Referrals: Jean Mckay MD [Primary Care Provider] - Print Language: Irish Disposition Disposition: Home, Self Care
[2023-09-08] MEDS: MethylPREDNISolone 125 MG/2 ML Vial IV (21:39)
[2023-09-08] MEDS: 0.9% Normal Saline (1000mL) 1,000 ML 999 ML IV (21:39)
[2023-09-08 21:41] VITALS: BMI 40.4
[2023-09-08] MEDS: Albuterol 2.5 MG/3 ML VIAL.NEB. INHALATION (21:49)
[2023-09-08] MEDS: Ipratropium/Albuterol Sulfate 3 ML AMPUL.NEB INHALATION (21:49)
[2023-09-08 21:51] VITALS: PULSE 106; RESP 16
[2023-09-08 21:54] VITALS: BP 146/90; PULSE 62; RESP 22; O2SAT 98
[2023-09-08 22:32] VITALS: BP 161/82; PULSE 111; RESP 20; TEMP 36.4; O2SAT 97
== END 2023-09-08 22:40 | disposition home or self-care (01) ==
PROVIDERS: Emergency Provider Student in an Organized Health Care Education/Training Program; PCP Family Medicine; Visit Provider Student in an Organized Health Care Education/Training Program
DX: J45.901 Unspecified asthma with (acute) exacerbation (principal); Z79.51 Long term (current) use of inhaled steroids; Z90.710 Acquired absence of both cervix and uterus
CPT/HCPCS: 93005; 94640; 96361; 96374; 99283; J7030

== ENCOUNTER → 2024-05-29 | Outpatient (CLI) | payer MEDICAID, OTHER, SELFPAY ==
[2024-06-05 10:07] LABS: HPV APTIMA, High Risk Negative (Negative)
[2024-06-05 14:37] LABS: HPV Reflexed? YES, CHARGE PATIENT
== END | disposition home or self-care (01) ==
PROVIDERS: PCP Family Medicine; Visit Provider Nurse Practitioner Family
DX: Z12.4 Encounter for screening for malignant neoplasm of cervix (principal)
CPT/HCPCS: 87624; 88175; G0145

== ENCOUNTER → 2024-07-11 | Outpatient (CLI) | payer OTHER, SELFPAY ==
--- NOTE | 2024-07-11 15:45 | BI_ITS ---
EXAM: SCRN MAMM (CAD)W/JUANITA BILAT 07/11/2024 CLINICAL HISTORY: F, Age 48 y/o , SCREENING. Family history of breast cancer in 2 paternal aunts TECHNIQUE: Bilateral screening digital breast tomosynthesis with 2D and 3D images. Computer aided detection. COMPARISON: 05/24/2019 FINDINGS: TISSUE DENSITY: The breast tissue is composed of scattered area of fibroglandular density. Bilateral Breast Mammographic Findings: No significant masses, calcifications or other abnormalities are identified. . BI/SCRN MAMM (CAD)W/JUANITA BILAT IMPRESSION: There is no mammographic evidence of malignancy. OVERALL FINAL ASSESSMENT: BIRADS 1 NEGATIVE. RECOMMENDATION: Routine annual follow-up in 1 Year A letter with findings and recommendations will be mailed to the patient. Reading Location: [id number]
== END | disposition home or self-care (01) ==
LOC: OPBI 15:43
PROVIDERS: PCP Family Medicine; Referring Provider Nurse Practitioner Family; Visit Provider Nurse Practitioner Family
DX: Z12.31 Encounter for screening mammogram for malignant neoplasm of breast (principal)
CPT/HCPCS: 77063; 77067